=== PATIENT | female | born 1950 | race Caucasian/White ===

== ENCOUNTER 2016-04-13 07:04 | Day surgery (SDC) | payer MEDICARE, OTHER ==
[2016-04-13] VITALS (7 sets, daily range): BP systolic 142–159; BP diastolic 69–79
[~2016-04-13] VITALS: Ht 167.6 cm; Wt 90.8 kg
[~2016-04-13 07:04] MED LIST: ATOR40TA PO; DESV50TA PO; NF-DICLTB PO; OLME40TA14 PO; SITA1TAB6 PO
--- OUTSIDE RECORDS SUMMARY | 2016-04-13 07:07 | XMS REPORT | Continuity of Care Document ---
Author Author [facility] Organization [facility] Address Unknown Phone Unavailable Care Team Providers Care Painter Barrel Name Role Phone CHINO MAHMOOD MD PCP Insurance Providers Payer Name Policy Number Subscriber Name Relationship [employer] [id number] Tracy Antunez 18 Self / Same As Patient Comm Crossover Enter Ins Name [id number] Tuyet Antunez 18 Self / Same As Patient Problems No problem information available. Medications Current Home Medications Medication Dose Units Route Directions Days/Qty Instructions Start Date Sitagliptin Phos/Metformin Hcl 1 Each 1 Tab Oral Twice A Day Olmesartan 40 Mg 1 Tab Oral Daily 07/13/09 Diclofenac/Misoprostol 1 Tab 1 Tab Oral Twice A Day 07/13/09 Desvenlafaxine Succinate 50 Mg 1 Tab Oral Daily 07/13/09 Atorvastatin Calcium 40 Mg 1 Tab Oral Daily 07/13/09 Social History Social History Problem Response Recorded Date/Time Recent Foreign Travel No 07/17/2015 1:53pm Hospital Discharge Instructions No hospital discharge instructions. Plan of Care Discharge Date 07/17/15 2:30pm Prescriptions See Medication Section Functional Status No functional status results. Allergies, Adverse Reactions, Alerts Allergen Type Severity Reaction Status Last Updated SULFA Allergy Intermediate Active 07/13/09 Immunizations No immunization records. Vital Signs Acute Vital Signs Vital Response Date/Time Pulse Rate (adult) 85 bpm (60 - 90) 06/19/2015 9:51am O2 Sat by Pulse Oximetry 99 % (88 - 100) 06/19/2015 9:49am Blood Pressure 143/72 mm Hg 06/19/2015 9:49am Blood Pressure Mean 95 mm Hg 06/19/2015 9:49am Height (Feet) 5 feet 06/19/2015 8:24am Height (Inches) 6.00 inches 06/19/2015 8:24am Height (Calculated Centimeters) 167.053087 cm 06/19/2015 8:24am Weight (Pounds) 200 pounds 06/19/2015 8:24am Weight (Ounces) 2.0 oz 06/19/2015 8:24am Weight (Calculated Grams) 35069.174 gm 06/19/2015 8:24am Weight (Calculated Kilograms) 90.481433 kilograms 06/19/2015 8:24am Calculated BMI 32.3 06/19/2015 8:24am Results Pending Laboratory Results Test Name Collection Date/Time Procedures Procedure Status Date Provider(s) Cardiac event recording Completed 06/23/15 CRISTOFER GUERRERO MD, FACP, FACCS Color Doppler echocardiography Active 06/27/15 CRISTOFER GUERRERO MD, FACP, FACC CCDS Encounters Encounter Location Arrival/Admit Date Discharge/Depart Date Attending Provider Departed Clinic [facility] 07/17/15 1:52pm 07/17/15 2: 30pm DEMOND ROBERTSON APRN Registered Clinic [facility] 07/01/15 12:18pm CRISTOFER GUERRERO FACP, MD, FACC Registered Clinic [facility] 06/27/15 11:52am CRISTOFER GUERRERO FACP, MD, FACC Registered Rec[facility]ring [facility] 06/23/15 1:05pm CRISTOFER GUERRERO FACP, MD, FACC Registered Clinic [facility] 06/19/15 8:15am CRISTOFER GUERRERO FACP, MD, FACC
--- OUTSIDE RECORDS SUMMARY | 2016-04-13 07:07 | XMS REPORT | Continuity of Care Document ---
Author Author [facility] Organization [facility] Address Unknown Phone Unavailable Care Team Providers Care Electron Gun Inspector Name Role Phone CHINO MAHMOOD MD PCP Insurance Providers Payer Name Policy Number Subscriber Name Relationship [employer] [id number] Tracy Antunez 18 Self / Same As Patient Comm Crossover Enter Ins Name [id number] Tuyet Antunez 16 Self / Same As [...] 6.00 inches 06/19/2015 8:24am Height (Calculated Centimeters) 167.896041 cm 06/19/2015 8:24am Weight (Pounds) 200 pounds 06/19/2015 8:24am Weight (Ounces) 2.0 oz 06/19/2015 8:24am Weight (Calculated Grams) 55841.174 gm 06/19/2015 8:24am Weight (Calculated Kilograms) 90.098379 kilograms 06/19/2015 8:24am Calculated BMI 32.3 06/19/2015 8:24am Results Pending Laboratory Results Test Name Collection Date/Time Procedures Procedure Status Date Provider(s) Cardiac event recording Completed 06/23/15 CRISTOFER GUERRERO MD, FACP, FACCS Color Doppler echocardiography Active 06/27/15 CRISTOFER GUERRERO MD, FACP, FACC CCDS Encounters Encounter Location Arrival/Admit Date Discharge/Depart Date Attending Provider Departed Clinic [facility] 07/17/15 1:52pm 07/17/15 2: 30pm DEMOND ROBERTSON APRN Registered Clinic [facility] 07/01/15 12:18pm CRISTOFER GUERRERO FACP, MD, FACC Registered Clinic [facility] 06/27/15 11:52am CRISTOFER GUERRERO FACP, MD, FACC Registered Recurring [facility] 06/23/15 1:05pm CRISTOFER GUERRERO FACP, MD, FACC Registered Clinic [facility] 06/19/15 8:15am CRISTOFER GUERRERO FACP, MD, FACC
[2016-04-13] MEDS ORDERED: HEParin (CATH LAB) 2,000 ML IV ONE (07:11)
[2016-04-13] MEDS ORDERED: NS IV 1000 ML 1,000 ML ONE (07:11)
[2016-04-13] MEDS ORDERED: LIDOCAINE 1% INJ 20 ML (XYLOCAINE) VIAL ONE (07:11)
[2016-04-13 07:35] LABS: MEAN PLATELET VOLUME 9.8 FL (7.4-10.4); RED BLOOD COUNT 4.86 10^6/uL (4.35-5.85); RED CELL DISTRIBUTION WIDTH 12.9 % (10.0-14.5); WHITE BLOOD COUNT 8.6 10^3/uL (4.3-11.0)
[2016-04-13] MEDS: NS IV 1000 ML 1,000 ML IV SCH ×2 (07:41→17:45)
[2016-04-13 07:52] LABS: PROTHROMBIN TIME PATIENT 13.1 SEC (12.2-14.7)
[2016-04-13 07:54] LABS: ALBUMIN 4.5 G/DL (3.2-4.5); BILIRUBIN,TOTAL 0.6 MG/DL (0.1-1.0); CALCIUM 10.2 MG/DL (8.5-10.1); CREATININE SERUM 1.09 MG/DL (0.60-1.30); POTASSIUM 4.4 MMOL/L (3.6-5.0); TOTAL PROTEIN 7.7 G/DL (6.4-8.2)
[2016-04-13] MEDS ORDERED: VENL75TA2 PO (08:07)
[2016-04-13] MEDS ORDERED: FLUT16SP22 NS (08:07)
[2016-04-13] MEDS ORDERED: LOSA100T28 PO (08:07)
[2016-04-13] MEDS ORDERED: CETI10TA20 PO (08:07)
[2016-04-13] MEDS ORDERED: LIRA0.6P SQ (08:07)
[2016-04-13] MEDS ORDERED: KRIL1CAP22 PO (08:07)
[2016-04-13] MEDS ORDERED: MONT10TA21 PO (08:07)
[2016-04-13] MEDS ORDERED: RT-ALBUINH IH (08:09)
[2016-04-13] MEDS ORDERED: fentaNYL INJECTION 100 MCG/2 ML AMP ONE ×2 (08:16→13:27)
[2016-04-13] MEDS ORDERED: diphenhydrAMINE 50 MG/ML INJ (BENADRYL) ONE (08:16)
[2016-04-13] MEDS ORDERED: MIDAZOLAM 5 MG/5 ML (VERSED) VIAL ONE (08:16)
[2016-04-13] MEDS ORDERED: HEParin 1000 UNIT/ML (10ML VIAL) FOR BOLUS ONE (08:44)
[2016-04-13] MEDS ORDERED: EPTIFIBATIDE BOLUS 20 ML IV ONE (08:44)
[2016-04-13] MEDS ORDERED: NITROGLYCERIN DRIP 25 MG/D5W 250 ML IV ONE (08:44)
[2016-04-13] MEDS ORDERED: CLOPIDOGREL 300 MG (PLAVIX) TABLET PO ONE (09:16)
[2016-04-13] MEDS ORDERED: ASPIRIN 81 MG CHEW (CHILDREN'S ASA) ONE ×2 (09:16→09:19)
[2016-04-13] MEDS ORDERED: NS IV 1000 ML 1,000 ML IV SCH (09:20)
--- NOTE | 2016-04-13 09:21 | Cardiac Procedure Note-CS/ASA ---
Pre-Procedure Note Pre-Op Procedure Note H&P Reviewed The H&P was reviewed, patient examined and no changes noted. Date H&P Reviewed: Apr 13, 2016 Time H&P Reviewed: 08:30 Conscious Sedation Pre-Proced Time Reviewed: 08:30 ASA Class: 3 Airway Mallampati Classification: (nightmute appropriate class) I. II. III, IV Lungs Heart ASA score ASA 1: a normal healthy patient ASA 2: a patient with a mild systemic disease (mid diabetes, controlled hypertension, obesity ASA 3: a patient with a severe systemic disease that limits activity (angina , COPD, prior Myocardial infarction) ASA 4: a patient with an incapacitating disease that is a constant threat to life (CHF, renal failure) ASA 5: a moribund patient not expected to survive 24 hrs. (ruptured aneurysm) ASA 6: a declared brain patient whose organs are being harvested. For emergent operations, add the letter E after the classification Grade 3 Sedation Plan: Analgesia, Amnesia, Plan communicated to team members, Discussed options with patient/fam, Discussed risks with patient/fam Note The patient is an appropriate candidate to undergo the planned procedure, sedation, and anesthesia. The patient immediately re-assessed prior to indication. CRISTOFER GUERRERO MD FACP FAC CCDS Apr 13, 2016 09:20
[2016-04-13] MEDS ORDERED: FLUTICASONE NASAL SPRAY (FLONASE) 16 GM BTL NS PRN (09:30)
[2016-04-13] MEDS ORDERED: ACETAMINOPHEN 325 MG TABLET/CAPLET (TYLENOL) PO PRN (09:30)
[2016-04-13] MEDS ORDERED: RX-ALBUTEROL INHALER (VENTOLIN HFA) 18 GM IH PRN (09:30)
[2016-04-13] MEDS ORDERED: PATIENT MAY USE OWN MEDS, ALL PO SCH (09:30)
[2016-04-13] MEDS ORDERED: ATROPINE INJECTION 1 MG/10 ML SYR (ABBOTT) ONE (13:29)
[2016-04-13] MEDS: inSUlin (REGULAR) HUMAN 1 UNIT/0.01 ML (CHARGE PER UNIT) SC SCH ×3 (14:38→20:59)
[2016-04-13] MEDS ORDERED: RT-ALBUTEROL SULF 2.5 MG/3 ML PRE-MIX VIAL INH PRN (14:45)
[2016-04-13] MEDS ORDERED: MONTELUKAST 10 MG (SINGULAIR) TAB PO SCH (21:00)
[2016-04-13] MEDS ORDERED: ATORVASTATIN 40 MG (LIPITOR) TABLET PO SCH (21:00)
[2016-04-14] MEDS: NS IV 1000 ML 1,000 ML IV SCH (03:45)
[2016-04-14 04:31] LABS: MEAN PLATELET VOLUME 10.2 FL (7.4-10.4); RED BLOOD COUNT 4.54 10^6/uL (4.35-5.85); RED CELL DISTRIBUTION WIDTH 12.9 % (10.0-14.5); WHITE BLOOD COUNT 8.3 10^3/uL (4.3-11.0)
[2016-04-14 04:35] VITALS: BP 157/7
[2016-04-14 04:49] LABS: ANION GAP 11 MMOL/L (5-14); BLOOD UREA NITROGEN 16 MG/DL (7-18); BUN/CREATININE RATIO 18; CALCIUM 9.6 MG/DL (8.5-10.1); CARBON DIOXIDE 24 MMOL/L (21-32); CHLORIDE 103 MMOL/L (98-107); CREATININE SERUM 0.91 MG/DL (0.60-1.30); GFR ESTIMATED > 60; GLUCOSE 251 MG/DL (70-105); POTASSIUM 4.1 MMOL/L (3.6-5.0); SODIUM 138 MMOL/L (135-145)
[2016-04-14] MEDS: inSUlin (REGULAR) HUMAN 1 UNIT/0.01 ML (CHARGE PER UNIT) SC SCH (06:08)
[2016-04-14 07:44] VITALS: BP 140/69
--- NOTE | 2016-04-14 08:29 | Progress Note-Cardiology ---
Cardiology SOAP Progress Note Subjective: Sitting up in a chair at the bedside. No c/o CP, dyspnea, palpitations. No c/ o right groin discomfort. Objective: I&O/Vital Signs Vital Sign - Last 12Hours 04/14/16 04/14/16 04/14/16 04/14/16 04:35 07:00 07:44 09:55 Temp 98.3 98.6 Pulse 84 85 95 95 Resp 19 16 16 B/P 157/7 140/69 140/69 Pulse Ox 95 94 94 O2 Delivery Room Air Room Air Intake and Output 04/14/16 00:00 Intake Total 250 ml Balance 250 ml Weight (Pounds): 200 Weight (Ounces): 2.0 Weight (Calculated Kilograms): 90.755355 Side: right Groin site without hematoma: Yes Condition: DP/PT pulses palpable, extremity w/d/p Bruising: mild bruising Constitutional: AAO x 3 Respiratory: lungs clear to auscultation Cardiovascular: regular rate-rhythm S1 and S2 systolic murmur Gastrointestional: No tender, soft round Extremities: no lower extremity edema bilateral Neurologic/Psychiatric: grossly intact Results/Procedures: Labs Laboratory Tests 04/13/16 16:18: Glucometer 145H 04/13/16 20:45: Glucometer 253H 04/14/16 03:35: Anion Gap 11, BUN/Creatinine Ratio 18, Blood Urea Nitrogen 16, Calcium Level 9.6 , Carbon Dioxide Level 24, Chloride Level 103, Creatinine 0.91, Estimat Glomerular Filtration Rate > 60, Glucose Level 251H, Hematocrit 40, Hemoglobin 13.3, Mean Corpuscular Hemoglobin 29, Mean Corpuscular Hemoglobin Concent 34, Mean Corpuscular Volume 87, Mean Platelet Volume 10.2, Platelet Count 200, Potassium Level 4.1, Red Blood Count 4.54, Red Cell Distribution Width 12.9, Sodium Level 138, White Blood Count 8.3 04/14/16 06:04: Glucometer 271H Procedures S/P cardiac cath with successful intervention. Please refer to Dr. Caldwell's cardiac cath report of 04-13-16 for details. A/P: Assessment: CAD -Card cath on 04/13/16: single vessel CAD treated with Alpine Xience 3.5 x 12mm stent to the LCX; LVEF 65-70% Echocardiogram of 4-29-16 showed normal global systolic function with ejection fraction of approx 60%. Aortic valve sclerosis with mild aortic stenosis and valve area approx 1.8 cm sq and a peak gradient across the aortic valve approx 31 mmHg. mild aortic, mitral and tricuspid regurg. Evidence of diastolic dysfunction of the LV. PASP estimated to be approx 20mmHg NAYANA - CPAP followed by Dr. Hair HTN DMII HLP - statin tx DJD Plan: Discussed results of cardiac cath with her Questions answered Discussed medications and importance of compliance Continue current medication regimen including ASA, Plavix, statin We will see her as an outpt in 2 weeks Physician Assessment Physician Assessment Lungs: clear Cor: reg A&R * I spoke with her in detail and explained the findings of yesterday's procedure and interventions undertaken * I reviewed the rationale of current regimen and importance of compliance * I answered questions and have advised close outpatient f/u for now SHIREEN KENNEDY Apr 14, 2016 08:29 CRISTOFER CALDWELL MD FACP FAC CCDS Apr 14, 2016 13:20 DMII HLP - statin tx DJD Plan: Discussed results of cardiac cath with her Questions answered Discussed medications and importance of compliance Continue current medication regimen including ASA, Plavix, statin We will see her as an outpt in 2 weeks SHIREEN KENNEDY Apr 14, 2016 08:29
[2016-04-14] MEDS ORDERED: CLOP75TA28 PO (08:44)
[2016-04-14] MEDS ORDERED: ASPI-586 PO (08:47)
--- NOTE | 2016-04-14 08:47 | Discharge Inst-Cardiology ---
Discharge Inst-Cardiac Discharge Medications New Medications: Aspirin (Aspir 81) 81 Mg Tablet.dr 81 MG PO DAILY #90 Ref 5 TAB Clopidogrel Bisulfate (Clopidogrel) 75 Mg Tablet 75 MG PO DAILY #90 Ref 3 TAB Continued Medications: Albuterol Sulfate (Ventolin Hfa Common Canister) 8.5 Gm Hfa.aer.ad 2 PUFF IH Q4H PRN SHORTNESS OF BREATH INH Atorvastatin Calcium (Lipitor 40MG) 40 Mg Tablet 40 MG PO HS TAB Cetirizine HCl (Zyrtec) 10 Mg Tablet 10 MG PO DAILY TAB Fluticasone Propionate (Fluticasone Propionate) 16 Gm [place].susp 1 SPRAY NS DAILY PRN ALLERGIES SPRAY Krill/Om-3/Dha/Epa/Phospho/Ast (Megared [place]-3 Krill Oil Sfgl) 1 Each Capsule 1 CAP PO DAILY CAP Liraglutide (Victoza 2-José) 0.6 Mg/0.1 Ml Pen.injctr 1.2 MG SQ DAILY VIAL Losartan Potassium (Losartan Potassium) 100 Mg Tablet 100 MG PO DAILY TAB Montelukast Sodium (Singulair) 10 Mg Tablet 10 MG PO HS TAB Sitagliptin Phos/Metformin Hcl (Janumet 50-1,000 Mg Tablet) 1 Each Tablet 1 TAB PO BID TAB Venlafaxine HCl (Venlafaxine HCl ER) 75 Mg Tab.er.24 150 MG PO DAILY TAKES 2 (75MG) TABLETS TAB Patient Instructions Patient Instructions: Hold Janumet today and tomorrow. May resume on April 16. Follow up appt to see Dr. Caldwell in 2 weeks SHIREEN KENNEDY Apr 14, 2016 08:47
[2016-04-14] MEDS ORDERED: NON-FORMULARY MEDICATION 1 EA EA (Cetirizine HCl (Zyrtec) 10 MG) PO SCH (09:00)
[2016-04-14] MEDS ORDERED: LOSARTAN 50 MG (COZAAR) TAB PO SCH (09:00)
[2016-04-14] MEDS ORDERED: [UNRECOGNIZED DRUG - OTHER] PO SCH (09:00)
[2016-04-14] MEDS ORDERED: NON-FORMULARY MEDICATION 1 EA EA (Venlafaxine HCl (Venlafaxine HCl ER) 150 MG) PO SCH (09:00)
[2016-04-14] MEDS ORDERED: NON-FORMULARY MEDICATION 1 EA EA (Losartan Potassium 100 MG) PO SCH (09:00)
[2016-04-14] MEDS ORDERED: DHA PO SCH (09:00)
[2016-04-14] MEDS ORDERED: ASPIRIN 81 MG CHEW (CHILDREN'S ASA) PO SCH (09:00)
[2016-04-14] MEDS ORDERED: KRILL PO SCH (09:00)
[2016-04-14] MEDS ORDERED: PHOSPHO PO SCH (09:00)
[2016-04-14] MEDS ORDERED: AST PO SCH (09:00)
[2016-04-14] MEDS ORDERED: EPA PO SCH (09:00)
[2016-04-14] MEDS ORDERED: CLOPIDOGREL 75 MG (PLAVIX) TABLET PO SCH (09:00)
[2016-04-14] MEDS ORDERED: NON-FORMULARY MEDICATION 1 EA EA (Liraglutide (Victoza 2-Pak) 1.2 MG) SQ SCH (09:00)
[2016-04-14 09:55] VITALS: BP 140/69
[2016-04-14 10:24] VITALS: BP 140/69
--- NOTE | 2016-04-14 12:56 | CARDIAC CATHETERIZATION ---
PROCEDURE PHYSICIAN: CRISTOFER GUERRERO CARDIAC CATHETERIZATION AND CORONARY INTERVENTION REPORT DATE OF PROCEDURE: 04/13/2016 Tracy Antunez is a 65-year-old lady who has multiple coronary artery disease risk factors. She had been experiencing chest discomfort suggestive of new onset of angina. Cardiac catheterization was carried today after having obtained an informed consent. PROCEDURE: She is brought to the cardiac catheterization laboratory in a fasting state. The right groin was prepped and draped in usual sterile fashion. 1% lidocaine was used for local anesthesia. Modified Seldinger technique was used to advance a 5-[place] sheath in right femoral artery. 5-[place] JL4 catheter was used for left coronary angiography. 5-[place] JR4 catheter was used for right coronary angiography. A 5-[place] pigtail catheter was used for left heart catheterization and left ventricular angiography. PERCUTANEOUS INTERVENTION OF THE LEFT CIRCUMFLEX CIRCUMFLEX ARTERY: Following completion of diagnostic procedure, we exchanged the sheath over a wire for a 6-[place] sheath. We gave a double bolus Integrilin 6500 units of intravenous heparin. We used a 6-[place] Q4.5 guide catheter to engage the left coronary artery. We used a BMW wire across the 80% stenosis in the mid left circumflex artery and the tip was placed in distal vessel. We advanced Alpine Xience 3.5 x 12 mm stent and positioned it to cover the stenosis and the stent was deployed at 12 atmospheres. Subsequently, the balloon was pulled back slightly into the stent and the proximal two-thirds of the stent received another balloon inflation of 14 atmospheres. This was because the proximal part of the stented area is slightly larger than the distal part of the stented area. Full stent deployment was achieved. Flow throughout the vessel was ALEC 3. Stenosis was reduced to 0% residual. Distal to the stent, there are mild plaques constituting stenoses of up to 30% or less. These were not intervened on. Angioplasty equipment was removed. Angiography of the right femoral artery was carried out through the sheath and the site of sheath deployment was not suitable for device closure. The sheath was sutured in place and the patient was transferred to floor for manual sheath removal. She tolerated the procedure well. HEMODYNAMICS: Left ventricular end diastolic pressure following coronary angiography was 15 mmHg. There is no significant pressure gradient on pullback across the aortic valve. Ascending aortic pressure was 179/92 with a mean of 132 mmHg. LEFT VENTRICULAR ANGIOGRAPHY: Left ventricular angiography was carried out in the right anterior oblique projection. Global left ventricular systolic function is normal. No regional wall motion abnormalities are seen. There does not appear to be significant mitral regurgitation. Left ventricular ejection fraction of 65 to 70%. CORONARY ANGIOGRAPHY: Mild proximal coronary calcification is present. The left main coronary artery does not exhibit significant obstructive disease. The left anterior descending artery does not exhibit significant obstructive disease. The left circumflex artery had 80% mid vessel stenosis to which successful stenting was carried out with reduction of stenosis to 0% residual, following deployment of Alpine Xience 3.5 x 12 mm stent. The rest of the coronary vessels have mild plaques. CONCLUSION: 1. Coronary artery disease, primarily consisting of 80% mid vessel stenosis of the left circumflex artery to which successful stenting was carried out with Alpine Xience 3.5 x 12 mm stent, which reduced the stenosis to 0% residual. The rest of the coronary vessels have mild plaques. 2. Mild elevation of left ventricular end diastolic pressure. 3. No significant mitral regurgitation. 4. Normal global left ventricular systolic function with an ejection fraction of 65 to 70%. DISCUSSION AND RECOMMENDATIONS: She is being admitted for observation following this intervention. Clopidogrel has been added to the regimen. Aspirin is being continued. She is already is on statin therapy. Job ID: [id number] Dictated Date: 04/13/2016 09:13:22 Drivability Technician Date: 04/14/2016 12:40:21 / josé
== END 2016-04-14 09:55 | disposition home or self-care (01) ==
LOC: CATH 07:04 → ICU 09:22 → CATH 04-14 09:55
PROVIDERS: ATTEND Internal Medicine Cardiovascular Disease
DX: I25.10 Atherosclerotic heart disease of native coronary artery without angina pectoris (principal); I25.84 Coronary atherosclerosis due to calcified coronary lesion; E11.9 Type 2 diabetes mellitus without complications; I10 Essential (primary) hypertension; E78.5 Hyperlipidemia, unspecified; G47.33 Obstructive sleep apnea (adult) (pediatric); R00.2 Palpitations; Z79.899 Other long term (current) drug therapy
CPT/HCPCS: 36415; 80048; 80053; 80061; 82962; 85027; 85610; 85730; 87081; 93005; 93458

== ENCOUNTER → 2018-01-03 | Outpatient (CLI) | payer MEDICARE, OTHER ==
[~2018-01-03] MED LIST changes: +ASPI-586 PO; +CETI10TA20 PO; +CLOP75TA28 PO; +FLUT16SP22 NS; +KRIL1CAP22 PO; +LIRA0.6P SQ; +LOSA100T8 PO; +MONT10TA21 PO; +RT-ALBUINH IH; +VENL75TA2 PO
== END ==
LOC: CARD 13:06
PROVIDERS: ATTEND Nurse Practitioner Family
DX: I25.10 Atherosclerotic heart disease of native coronary artery without angina pectoris (principal); I10 Essential (primary) hypertension; I08.3 Combined rheumatic disorders of mitral, aortic and tricuspid valves
CPT/HCPCS: 93306

== ENCOUNTER 2018-01-17 10:59 | Day surgery (SDC) | payer MEDICARE, OTHER ==
[2018-01-17] VITALS (12 sets, daily range): BP systolic 112–175; BP diastolic 62–92
[~2018-01-17] VITALS: Ht 167.6 cm; Wt 95.3 kg
[2018-01-17] MEDS ORDERED: HEParin (CATH LAB) 2,000 ML IV ONE (11:09)
[2018-01-17] MEDS ORDERED: LIDOCAINE 1% INJ 20 ML 20 ML VIAL ONE (11:09)
[2018-01-17] MEDS ORDERED: NS IV 1000 ML 1,000 ML ONE (11:09)
[2018-01-17] MEDS ORDERED: NS IV 1000 ML 1,000 ML IV SCH ×2 (11:12→14:25)
[2018-01-17 11:53] LABS: HEMOGLOBIN 13.6 G/DL (11.5-16.0); MEAN PLATELET VOLUME 9.8 FL (7.4-10.4); RED BLOOD COUNT 4.84 10^6/uL (4.35-5.85); RED CELL DISTRIBUTION WIDTH 15.2 % (10.0-14.5); WHITE BLOOD COUNT 9.2 10^3/uL (4.3-11.0)
[2018-01-17 12:11] LABS: INR 1.1 (0.8-1.4); PROTHROMBIN TIME PATIENT 13.8 SEC (12.2-14.7)
[2018-01-17 12:15] LABS: ALANINE AMINOTRANSFERASE 23 U/L (0-55); ALBUMIN 4.8 GM/DL (3.2-4.5); ALKALINE PHOSPHATASE 123 U/L (40-136); BILIRUBIN,TOTAL 0.6 MG/DL (0.1-1.0); BUN/CREATININE RATIO 18; CALCIUM 10.6 MG/DL (8.5-10.1); CARBON DIOXIDE 23 MMOL/L (21-32); CHLORIDE 103 MMOL/L (98-107); CHOLESTEROL 276 MG/DL (< 200); GFR ESTIMATED 49; GLUCOSE 225 MG/DL (70-105); HDL CHOLESTEROL 57 MG/DL (40-60); POTASSIUM 4.5 MMOL/L (3.6-5.0); SODIUM 140 MMOL/L (135-145); TOTAL PROTEIN 8.3 GM/DL (6.4-8.2); TRIGLYCERIDES 185 MG/DL (<150); VLDL CHOLESTEROL 37 MG/DL (5-40)
[2018-01-17] MEDS ORDERED: FLU QUADRIvalent (5+ YOA) 2018-2019 (AFLURIA) 0.5 ML IM ONE (12:30)
[2018-01-17] MEDS ORDERED: VENL225T PO (12:38)
[2018-01-17] MEDS ORDERED: ATOR40TA70 PO (12:38)
[2018-01-17] MEDS ORDERED: METF-399 PO (12:38)
[2018-01-17] MEDS ORDERED: CLOP75TA69 PO (12:38)
[2018-01-17] MEDS ORDERED: VITA100T6 PO (12:38)
[2018-01-17] MEDS ORDERED: RT-ALBUINH IH (12:38)
[2018-01-17] MEDS ORDERED: INSU100V6 SQ (12:38)
[2018-01-17] MEDS ORDERED: ASPI-983 PO (12:38)
[2018-01-17] MEDS ORDERED: fentaNYL INJECTION 100 MCG/2 ML AMP ONE ×2 (13:15→17:23)
[2018-01-17] MEDS ORDERED: MIDAZOLAM 5 MG/5 ML (VERSED) VIAL ONE (13:15)
[2018-01-17] MEDS ORDERED: diphenhydrAMINE 25 MG TAB (BENADRYL) PO ONE (13:16)
--- NOTE | 2018-01-17 13:42 | Cardiac Procedure Note-CS/ASA ---
Pre-Procedure Note Pre-Op Procedure Note H&P Reviewed The H&P was reviewed, patient examined and no changes noted. Date H&P Reviewed: Jan 17, 2018 Time H&P Reviewed: 13:42 Conscious Sedation Pre-Proced Time 13:42 ASA Score 3 For ASA 3 and 4: Consider anesthesia and medical clearance. Also, for patients with a history of failed moderate sedation consider anesthesia. Airway Lungs Heart ASA score ASA 1: a normal healthy patient ASA 2: a patient with a mild systemic disease (mid diabetes, controlled hypertension, obesity ASA 3: a patient with a severe systemic disease that limits activity (angina , COPD, prior Myocardial infarction) ASA 4: a patient with an incapacitating disease that is a constant threat to life (CHF, renal failure) ASA 5: a moribund patient not expected to survive 24 hrs. (ruptured aneurysm) ASA 6: a declared brain patient whose organs are being harvested. For emergent operations, add the letter E after the classification Mallampati Classification Grade 2 Sedation Plan Analgesia, Amnesia, Plan communicated to team members, Discussed options with patient/fam, Discussed risks with patient/fam The patient is an appropriate candidate to undergo the planned procedure, sedation, and anesthesia. The patient immediately re-assessed prior to indication. CRISTOFER GUERRERO MD FACP FAC CCDS Jan 17, 2018 13:42
[2018-01-17] MEDS ORDERED: HEParin 1000 UNIT/ML (10ML VIAL) FOR BOLUS ONE (13:56)
[2018-01-17] MEDS ORDERED: ADENOSINE 3 MG/1 ML (ADENOSCAN) 30ML VIAL IV ONE (14:07)
[2018-01-17] MEDS ORDERED: meTOprolol 5 MG/5 ML (LOPRESSOR) VIAL ONE (14:16)
[2018-01-17] MEDS ORDERED: PATIENT MAY USE OWN MEDS, ALL PO SCH (14:30)
--- NOTE | 2018-01-17 14:33 | Discharge Inst-Post CATH ---
Discharge Inst-CATH Post Cardiac Cath D/C Inst Follow Up/Plan F/u with Dr Caldwell in 2 weeks CARDIAC CATH DISCHARGE INSTRUCTIONS *Hold Metformin for 48 hours after heart cath. ACTIVITY * Go Home directly and rest. * Limit activity of the leg (or wrist if it was used) for 7 days including aerobics, swimming, jogging, bicycling, etc. * Restrict stair-climbing for 7 days if possible, if not, climb up with your non -cath leg, then bring together on the same step. * Avoid lifting, pushing, pulling or excessive movement of the affected extremity for 7 days. * Customary sexual activity may be resumed after 2 days-use caution not to use a position that strains or causes pain to the affected extremity. * No driving for 24 hours. * NO SMOKING. * Avoid straining for bowel movements for 7 days. * Gentle walking on level ground is allowed. * Returning to work will depend on the type of procedure and the results. Your doctor will discuss this with you. CALL YOUR DOCTOR FOR ANY OF THE FOLLOWING: *If bleeding from the puncture site occurs- Apply gentle pressure to site with clean cloth and call your doctor or EMS. * If a knot or lump forms under the skin, increases in size, or causes pain. * If bruising appears to be worsening or moving further down your leg instead of disappearing. * Temperature above 101 F. CARE OF YOUR GROIN INCISION; * Bruising or purple discoloration of the skin near the puncture site is common. * You may shower only, no bathtub bathing for 5 days. Be careful to avoid slipping as your leg may feel stiff. * If a closure device was used on your femoral artery, please see the attached guide regarding care of the device and your leg. * Leave the dressing on, until removed by office staff. CARE OF YOUR WRIST INCISION; * Bruising or purple discoloration of the skin near the puncture site is common. * You may shower. * DO NOT submerge wrist. * Leave dressing on, until removed by office staff.. CRISTOFER CALDWELL MD [facility] CCDS Jan 17, 2018 14:33
--- NOTE | 2018-01-17 14:35 | Discharge Inst-Cardiology ---
Discharge Inst-Cardiac Discharge Medications Continued Medications: Albuterol Sulfate (Proair Hfa) 1 Puff Puff 2 PUFF IH Q4H PRN for SHORTNESS OF BREATH, INHALER 1 PUFF = 90 MCG Aspirin (Aspirin EC) 81 Mg Tablet.dr 81 MG PO HS, TAB Atorvastatin Calcium (Atorvastatin Calcium) 40 Mg Tablet 40 MG PO Q48H, TAB Cetirizine HCl (Zyrtec) 10 Mg Tablet 10 MG PO DAILY, TAB Clopidogrel Bisulfate (Plavix) 75 Mg Tablet 75 MG PO DAILY, TAB Fluticasone Propionate (Fluticasone Propionate) 16 Gm [place].susp 1 SPRAY NS DAILY, EA Insulin Glargine,Hum.rec.anlog (Lantus) 100 Unit/1 Ml Vial 40 UNIT SQ BID, VIAL Krill/Om-3/Dha/Epa/Phospho/Ast (Megared [place]-3 Krill Oil Sfgl) 1 Each Capsule 1 CAP PO DAILY, CAP Losartan Potassium (Losartan Potassium) 100 Mg Tablet 100 MG PO DAILY, TAB Metformin HCl (Metformin HCl) 1,000 Mg Tablet 1000 MG PO BID, TAB Montelukast Sodium (Singulair) 10 Mg Tablet 10 MG PO HS, TAB Venlafaxine HCl (Venlafaxine HCl ER) 225 Mg Tab.er.24 225 MG PO DAILY, TAB Vitamin E Acid Succinate (Vitamin E) 100 Unit Tablet 100 UNIT PO DAILY, TAB Patient Instructions Patient Instructions: HOLD METFORMIN UNTIL THE EVENING OF 01/19/18, then resume previous home dose CRISTOFER GUERRERO MD FACP FAC CCDS Jan 17, 2018 14:35
[2018-01-17] MEDS ORDERED: amLODIPine 10 MG (NORVASC) TAB PO ONE (14:45)
[2018-01-17] MEDS ORDERED: ATROPINE INJECTION 1 MG/10 ML SYR (ABBOTT) ONE (17:24)
[2018-01-17] MEDS ORDERED: fentaNYL INJECTION 100 MCG/2 ML AMP IVP ONE (17:30)
--- NOTE | 2018-01-17 19:47 | CARDIAC CATHETERIZATION ---
DATE OF SERVICE: 01/17/2018 CARDIAC CATHETERIZATION REPORT The patient is a 67-year-old lady who is known to have coronary artery disease and has had coronary stenting in 2017 in the left circumflex artery. She has been having recurrent chest discomfort suggestive of angina. A repeat cardiac catheterization was carried out after having obtained an informed consent for cardiac catheterization and possible ad hoc coronary intervention. PROCEDURE: She was brought to the cardiac catheterization laboratory in a fasting state. Right groin was prepared and draped in the usual sterile fashion. Lidocaine 1% with local anesthesia. Modified Seldinger technique was used to advance a 5-[place] sheath into the right femoral artery, 5-[place] JL4 catheter for left coronary angiography, 5-[place] JR4 catheter for right coronary angiography, 5-[place] pigtail catheter was used for left heart catheterization, left ventricular angiography. FRACTIONAL FLOW RESERVE MEASUREMENT IN THE LEFT CIRCUMFLEX ARTERY: Angiographically, there appeared to be approximately 50% stenosis in the mid left circumflex artery, past the distal edge of the previously placed stent. We carried out fractional flow reserve measurement. We exchanged the sheath over a wire for 6-[place] sheath and used a 6-[place] JL4 guide catheter and advanced the flow wire across the lesion and the tip was placed in the distal portion of the left circumflex artery and we infused adenosine at 140 mcg per kilogram per minute for 2-1/2 minutes. Fractional flow reserve was measured at 0.97, indicating hemodynamic insignificance of the lesion in the mid left circumflex artery. Following removal of the fractional flow wire, the coronary status remains unchanged. The stenosis in the mid left circumflex artery is now estimated to be less than 50%, given that there is no impairment of flow. LEFT VENTRICULAR ANGIOGRAPHY: Left ventricular angiography was carried out in the right anterior oblique projection. Global left ventricular systolic function is normal to hyperdynamic. Left ventricular ejection fraction is 65 to 70%. There does not appear to be significant mitral regurgitation. CORONARY ANGIOGRAPHY: Left main coronary artery is free of significant disease. Left anterior descending artery is free of significant disease. Left circumflex artery has a widely patent stent in its mid portion. The left circumflex artery distal to the stent has less than 50% stenosis. The right coronary artery is dominant and does not exhibit significant disease. HEMODYNAMICS: Left ventricular end-diastolic pressure following left ventricular angiography was approximately 20 mmHg. There was no significant pressure gradient on pullback across the aortic valve. Ascending aortic pressure was 165/79 with a mean of 104 mmHg. CONCLUSIONS: 1. Angiographically mild coronary artery disease. There is a widely patent stent in the mid left circumflex artery. The mid left circumflex artery, distal to this stent, has a less than 50% stenosis and the fractional flow reserve is 0.97. 2. Normal to hyperdynamic left ventricular systolic function with an ejection fraction of 65 to 70%. 3. No significant mitral regurgitation. 4. Elevated left ventricular end-diastolic pressure. DISCUSSION AND RECOMMENDATIONS: Based on results of the study, chest discomfort does not appear to be of coronary origin. Continuing risk factor modification is advised. Outpatient followup is advised. Job ID: [id number] DocumentID: [id number] Dictated Date: 01/17/2018 14:45:53 Ice Seller Date: 01/17/2018 19:46:37 Dictated By: CRISTOFER GUERRERO MD, MA, FACP, FACC, MTDD
== END 2018-01-17 22:45 | disposition home or self-care (01) ==
LOC: CATH 10:59 → ICU 14:36 → CATH 22:45
PROVIDERS: ATTEND Internal Medicine Cardiovascular Disease
DX: R07.89 Other chest pain (principal); R06.09 Other forms of dyspnea; R00.2 Palpitations; I25.10 Atherosclerotic heart disease of native coronary artery without angina pectoris; I10 Essential (primary) hypertension; E78.5 Hyperlipidemia, unspecified; E11.9 Type 2 diabetes mellitus without complications; G47.33 Obstructive sleep apnea (adult) (pediatric); E66.9 Obesity, unspecified; Z68.33 Body mass index [BMI] 33.0-33.9, adult; Z95.5 Presence of coronary angioplasty implant and graft; Z79.02 Long term (current) use of antithrombotics/antiplatelets; Z79.82 Long term (current) use of aspirin; Z79.84 Long term (current) use of oral hypoglycemic drugs; Z79.899 Other long term (current) drug therapy; Z96.653 Presence of artificial knee joint, bilateral
CPT/HCPCS: 36415; 80053; 80061; 85027; 85610; 85730; 87081; 93005; 93458

== ENCOUNTER → 2018-04-25 | Outpatient (CLI) | payer MEDICARE, OTHER ==
[~2018-04-25] MED LIST changes: +ASPI-983 PO; +ATOR40TA70 PO; +CLOP75TA69 PO; +INSU100V6 SQ; +LOSA100T57 PO; -LOSA100T8 PO; +METF-399 PO; +VENL225T PO; +VITA100T6 PO
--- NOTE | 2018-04-25 17:49 | Diagnostic Imaging Report ---
EXAMINATION: CHEST (PA AND LATERAL) CLINICAL INDICATION: 67-year-old female, shortness of breath. COMPARISON: July 13, 2009. FINDINGS: Heart size and mediastinal contours are unremarkable. There is no identified pneumothorax. There is no pleural effusion. There is no identified focal airspace consolidation. IMPRESSION: 1. No identified acute cardiopulmonary abnormality. Dictated by: Dictated on workstation # [id number]
== END ==
LOC: RAD 14:58
PROVIDERS: ATTEND Nurse Practitioner Family
DX: J30.9 Allergic rhinitis, unspecified (principal); G47.33 Obstructive sleep apnea (adult) (pediatric)
CPT/HCPCS: 71046

== ENCOUNTER → 2018-04-26 | Outpatient (CLI) | payer MEDICARE, OTHER ==
--- NOTE | 2018-04-26 12:06 | NUR ---
SATS DID NOT DROP BELOW 90% WITH EXERTION ON ROOM AIR. Addendum: 04/26/18 at 1216 by ELIJAH SOTO RT Amended: Links added.
== END ==
LOC: RT 11:12
PROVIDERS: ATTEND Nurse Practitioner Family
DX: G47.33 Obstructive sleep apnea (adult) (pediatric) (principal); J30.9 Allergic rhinitis, unspecified
CPT/HCPCS: 94761

== ENCOUNTER → 2018-05-17 | Outpatient (CLI) | payer MEDICARE, OTHER ==
[~2018-05-17] MED LIST changes: +RT-ALBUTEROL SULF 2.5 MG/3 ML PRE-MIX VIAL INH ONE; +RT-ALBUTEROL SULF 2.5 MG/3 ML PRE-MIX VIAL ONE
== END ==
LOC: RT 12:37
PROVIDERS: ATTEND Nurse Practitioner Family
DX: G47.33 Obstructive sleep apnea (adult) (pediatric) (principal); J30.9 Allergic rhinitis, unspecified
CPT/HCPCS: 94060; 94726; 94729

== ENCOUNTER → 2018-05-18 | Outpatient (CLI) | payer MEDICARE, OTHER ==
[~2018-05-18] MED LIST changes: +BARIUM SUSPENSION 2.1% (VANILLA SILQ) 450 ML PO ONE; +CATHETER FLUSH 10 ML SYR IV PRN; +HOLD METFORMIN - RECEIVED CONTRAST 20 ML VIAL IV SCH; +IOHEXOL 350 MG/ML 100 ML (OMNIPAQUE 350) VIAL IV ONE; +NS 100 ML (IVPB) BAG IV ONE; -RT-ALBUTEROL SULF 2.5 MG/3 ML PRE-MIX VIAL INH ONE; -RT-ALBUTEROL SULF 2.5 MG/3 ML PRE-MIX VIAL ONE
--- NOTE | 2018-05-18 17:23 | Diagnostic Imaging Report ---
PROCEDURE: CT abdomen and pelvis with contrast. TECHNIQUE: Multiple contiguous axial images were obtained through the abdomen and pelvis after administration of intravenous contrast. Auto Exposure Controls were utilized during the CT exam to meet ALARA standards for radiation dose reduction. INDICATION: Left upper quadrant pain. History of diverticulitis. COMPARISON: None available. FINDINGS: Lower chest: The lung bases are clear. No pericardial or pleural effusion. Peritoneum: No free intraperitoneal air or fluid. Liver and biliary system: Diffuse hypoattenuation of the liver is compatible with diffuse hepatic steatosis. No focal hepatic lesion. Cholecystectomy. No biliary duct dilatation. Spleen and Pancreas: Spleen is normal. The pancreas enhances normally without mass lesion or peripancreatic inflammatory changes. Adrenals: Normal. tract: The kidneys enhance normally without suspicious mass or obstruction. Urinary bladder is distended without wall thickening. Status post hysterectomy. No adnexal mass. GI tract: Stomach is partially filled with contrast material, and there is no wall thickening. No bowel obstruction. No pericolonic inflammatory changes. No diverticular disease. In the mid transverse colon, there is a short segment of decompressed bowel that does not significantly change between portal venous and delayed-phase imaging. There are no surrounding inflammatory changes at this level. Normal appendix. Vasculature and Lymph nodes: Normal caliber aorta with moderate atherosclerotic plaquing. No abdominal or pelvic lymphadenopathy. Musculoskeletal: No concerning osseous lesion. IMPRESSION: 1. No acute inflammatory or obstructive process in the abdomen or pelvis. Specifically, there are no features of diverticulitis. 2. There is an approximately 7 cm segment of the transverse colon that is decompressed with apparent wall thickening. This may represent peristalsis although does not change between the portal venous and delayed phases of imaging. Therefore, neoplastic or chronic inflammatory process could be present. Correlation with colonoscopy is advised. 3. Diffuse hepatic steatosis. Dictated by: Dictated on workstation # [id number]
== END ==
LOC: RAD 14:22
PROVIDERS: ATTEND Family Medicine
DX: K76.0 Fatty (change of) liver, not elsewhere classified (principal); K63.89 Other specified diseases of intestine; Z90.49 Acquired absence of other specified parts of digestive tract; Z87.19 Personal history of other diseases of the digestive system
CPT/HCPCS: 74177

== ENCOUNTER 2018-05-23 10:57 | Outpatient (CLI) | payer MEDICARE, OTHER ==
[~2018-05-23] VITALS: Ht 167.6 cm; Wt 92.5 kg
[~2018-05-23 10:57] MED LIST changes: -BARIUM SUSPENSION 2.1% (VANILLA SILQ) 450 ML PO ONE; -CATHETER FLUSH 10 ML SYR IV PRN; -HOLD METFORMIN - RECEIVED CONTRAST 20 ML VIAL IV SCH; -IOHEXOL 350 MG/ML 100 ML (OMNIPAQUE 350) VIAL IV ONE; -NS 100 ML (IVPB) BAG IV ONE
== END 2018-05-23 11:44 | disposition home or self-care (01) ==
LOC: PREOP 10:57
PROVIDERS: ATTEND Surgery
DX: Z01.818 Encounter for other preprocedural examination (principal)

== ENCOUNTER 2018-05-24 10:43 | Day surgery (SDC) | payer MEDICARE, OTHER ==
[~2018-05-24] VITALS: Ht 167.6 cm; Wt 92.5 kg
[2018-05-24] MEDS ORDERED: NS IV 500 ML 500 ML ONE (10:56)
--- OUTSIDE RECORDS SUMMARY | 2018-05-24 10:56 | XMS REPORT | Continuity of Care Document ---
Author Author [facility] Organization [facility] Address Unknown Phone Unavailable Allergies Active Description Code Type Severity Reaction Onset Reported/Identified Relationship to Patient Clinical Status Yes SULFA SULFA Moderate N/A 07/13/2009 Yes Sulfa (Sulfonamide Antibiotics) [id number] Drug Allergy Unknown N/A 2017 Medications There is no data. Problems Date Dx Coded Attending Type Code Diagnosis Diagnosed By 04/12/2010 Ot 401.9 HYPERTENSION NOS 04/12/2010 Ot V43.65 KNEE JOINT REPLACEMENT STATUS 04/12/2010 Ot V54.81 AFTERCARE FOLLOWING JOINT REPLACEMENT 04/12/2010 Ot V57.1 PHYSICAL THERAPY NEC 04/29/2010 Ot 401.9 HYPERTENSION NOS 04/29/2010 Ot V43.65 KNEE JOINT REPLACEMENT STATUS 04/29/2010 Ot V54.81 AFTERCARE FOLLOWING JOINT REPLACEMENT 04/29/2010 Ot V57.1 PHYSICAL THERAPY NEC 06/19/2015 Ot V58.61 ANTICOAGULANTS,LT,CURRENT USE 06/19/2015 Ot V58.83 ENCOUNTER FOR THERAPEUTIC DRUG MONITORIN 06/19/2015 Ot V43.65 KNEE JOINT REPLACEMENT STATUS 06/19/2015 Ot V58.61 ANTICOAGULANTS,LT,CURRENT USE 06/19/2015 Ot V58.83 ENCOUNTER FOR THERAPEUTIC DRUG MONITORIN 06/19/2015 Ot V58.61 ANTICOAGULANTS,LT,CURRENT USE 06/19/2015 Ot V58.83 ENCOUNTER FOR THERAPEUTIC DRUG MONITORIN 06/19/2015 Ot V43.65 KNEE JOINT REPLACEMENT STATUS 06/19/2015 Ot V58.61 ANTICOAGULANTS,LT,CURRENT USE 06/19/2015 Ot V58.83 ENCOUNTER FOR THERAPEUTIC DRUG MONITORIN 06/20/2015 CESAR OLMSTEAD FACC, CRISTOFER CUELLAR CCDS Ot E78.0 PURE HYPERCHOLESTEROLEMIA 06/20/2015 CESAR OLMSTEAD FACC, CRISTOFER CUELLAR CCDS Ot I10 ESSENTIAL (PRIMARY) HYPERTENSION 06/20/2015 CESAR OLMSTEAD FACC, CRISTOFER CUELLAR CCDS Ot R00.2 PALPITATIONS 06/20/2015 CESAR OLMSTEAD FACC, ALI FACP CCDS Ot R06.02 SHORTNESS OF BREATH 06/20/2015 CESAR OLMSTEAD FACC, ALI FACP CCDS Ot R07.89 OTHER CHEST PAIN 06/23/2015 CESAR OLMSTEAD FACC, ALI FACP CCDS Ot E78.0 PURE HYPERCHOLESTEROLEMIA 06/23/2015 CESAR OLMSTEAD FACC, ALI FACP CCDS Ot I10 ESSENTIAL (PRIMARY) HYPERTENSION 06/23/2015 CESAR OLMSTEAD FACC, ALI FACP CCDS Ot R00.2 PALPITATIONS 06/23/2015 CESAR OLMSTEAD FACC, ALI FACP CCDS Ot R06.02 SHORTNESS OF BREATH 06/23/2015 CESAR OLMSTEAD FACC, ALI FACP CCDS Ot R07.89 OTHER CHEST PAIN 06/24/2015 Ot V58.61 ANTICOAGULANTS,LT,CURRENT USE 06/24/2015 Ot V58.83 ENCOUNTER FOR THERAPEUTIC DRUG MONITORIN 06/24/2015 Ot V43.65 KNEE JOINT REPLACEMENT STATUS 06/24/2015 Ot V58.61 ANTICOAGULANTS,LT,CURRENT USE 06/24/2015 Ot V58.83 ENCOUNTER FOR THERAPEUTIC DRUG MONITORIN 06/24/2015 CESAR OLMSTEAD FACC, ALI FACP CCDS Ot E78.0 PURE HYPERCHOLESTEROLEMIA 06/24/2015 CESAR OLMSTEAD FACC, ALI FACP CCDS Ot I10 ESSENTIAL (PRIMARY) HYPERTENSION 06/24/2015 CESAR OLMSTEAD FACC, ALI FACP CCDS Ot R00.2 PALPITATIONS 06/24/2015 CESAR OLMSTEAD FACC, ALI FACP CCDS Ot R06.02 SHORTNESS OF BREATH 06/24/2015 CESAR OLMSTEAD FACC, ALI FACP CCDS Ot R07.89 OTHER CHEST PAIN 06/24/2015 CESAR OLMSTEAD FACC, ALI FACP CCDS Ot E78.0 PURE HYPERCHOLESTEROLEMIA 06/24/2015 CESAR OLMSTEAD FACC, ALI FACP CCDS Ot I10 ESSENTIAL (PRIMARY) HYPERTENSION 06/24/2015 CESAR OLMSTEAD FACC, ALI FACP CCDS Ot R00.2 PALPITATIONS 06/24/2015 CESAR OLMSTEAD FACC, ALI FACP CCDS Ot R06.2 WHEEZING 06/24/2015 CESAR OLMSTEAD FACC, ALI FACP CCDS Ot R07.89 OTHER CHEST PAIN 06/24/2015 CESAR OLMSTEAD FACC, ALI FACP CCDS Ot E78.0 PURE HYPERCHOLESTEROLEMIA 06/24/2015 CESAR OLMSTEAD FACC, ALI FACP CCDS Ot I10 ESSENTIAL (PRIMARY) HYPERTENSION 06/24/2015 CESAR OLMSTEAD FACC, ALI FACP CCDS Ot R00.2 PALPITATIONS 06/24/2015 CESAR OLMSTEAD FACC, ALI FACP CCDS Ot R06.02 SHORTNESS OF BREATH 06/24/2015 CESAR OLMSTEAD FACC, ALI FACP CCDS Ot R07.89 OTHER CHEST PAIN 06/30/2015 CESAR OLMSTEAD FACC, ALI FACP CCDS Ot E78.0 PURE HYPERCHOLESTEROLEMIA 06/30/2015 CESAR OLMSTEAD [facility], ALI FACP CCDS Ot I10 ESSENTIAL (PRIMARY) HYPERTENSION 06/30/2015 CESAR OLMSTEAD [facility], ALI FACP CCDS Ot R00.2 PALPITATIONS 06/30/2015 CESAR OLMSTEAD [facility], ALI FACP CCDS Ot R06.2 WHEEZING 06/30/2015 CESAR OLMSTEAD [facility], ALI FACP CCDS Ot R07.89 OTHER CHEST PAIN 07/02/2015 CESAR OLMSTEAD [facility], ALI FACP CCDS Ot E78.0 PURE HYPERCHOLESTEROLEMIA 07/02/2015 CESAR OLMSTEAD [facility], ALI FACP CCDS Ot I10 ESSENTIAL (PRIMARY) HYPERTENSION 07/02/2015 CESAR OLMSTEAD [facility], ALI FACP CCDS Ot R00.2 PALPITATIONS 07/02/2015 CESAR OLMSTEAD [facility], ALI FACP CCDS Ot R06.02 SHORTNESS OF BREATH 07/02/2015 CESAR OLMSTEAD [facility], ALI FACP CCDS Ot R07.89 OTHER CHEST PAIN 07/09/2015 CESAR OLMSTEAD [facility], CRISTOFER FACP CCDS Ot E78.0 PURE HYPERCHOLESTEROLEMIA 07/09/2015 CESAR OLMSTEAD [facility], ALI FACP CCDS Ot I10 ESSENTIAL (PRIMARY) HYPERTENSION 07/09/2015 CESAR OLMSTEAD [facility], ALI FACP CCDS Ot R00.2 PALPITATIONS 07/09/2015 CESAR OLMSTEAD [facility], ALI FACP CCDS Ot R06.02 SHORTNESS OF BREATH 07/09/2015 CESAR OLMSTEAD [facility], ALI FACP CCDS Ot R07.89 OTHER CHEST PAIN 07/17/2015 DEMOND ROBERTSON APRN Ot G47.33 OBSTRUCTIVE SLEEP APNEA (ADULT) (PEDIATR 07/17/2015 CESAR OLMSTEAD FACC, ALI FACP CCDS Ot E78.0 PURE HYPERCHOLESTEROLEMIA 07/17/2015 CESAR OLMSTEAD FACC, ALI FACP CCDS Ot I10 ESSENTIAL (PRIMARY) HYPERTENSION 07/17/2015 CESAR OLMSTEAD FACC, ALI FACP CCDS Ot R00.2 PALPITATIONS 07/17/2015 CESAR OLMSTEAD FACC, ALI FACP CCDS Ot R06.02 SHORTNESS OF BREATH 07/17/2015 CESAR OLMSTEAD FACC, ALI FACP CCDS Ot R07.89 OTHER CHEST PAIN 07/17/2015 CESAR OLMSTEAD FACC, ALI FACP CCDS Ot E78.0 PURE HYPERCHOLESTEROLEMIA 07/17/2015 CESAR OLMSTEAD FACC, ALI FACP CCDS Ot I10 ESSENTIAL (PRIMARY) HYPERTENSION 07/17/2015 CESAR OLMSTEAD [facility], ALI FACP CCDS Ot R00.2 PALPITATIONS 07/17/2015 CESAR OLMSTEAD [facility], ALI FACP CCDS Ot R06.02 SHORTNESS OF BREATH 07/17/2015 CESAR OLMSTEAD [facility], ALI FACP CCDS Ot R07.89 OTHER CHEST PAIN 07/17/2015 DEMOND ROBERTSON APRN Ot G47.33 OBSTRUCTIVE SLEEP APNEA (ADULT) (PEDIATR 07/17/2015 DEMOND ROBERTSON APRN Ot G47.33 OBSTRUCTIVE SLEEP APNEA (ADULT) (PEDIATR 07/17/2015 CESAR OLMSTEAD [facility], ALI FACP CCDS Ot E78.0 PURE HYPERCHOLESTEROLEMIA 07/17/2015 CESAR OLMSTEAD [facility], ALI FACP CCDS Ot I10 ESSENTIAL (PRIMARY) HYPERTENSION 07/17/2015 CESAR OLMSTEAD [facility], ALI FACP CCDS Ot R00.2 PALPITATIONS 07/17/2015 CESAR OLMSTEAD [facility], ALI FACP CCDS Ot R06.02 SHORTNESS OF BREATH 07/17/2015 CESAR OLMSTEAD [facility], ALI FACP CCDS Ot R07.89 OTHER CHEST PAIN 07/22/2015 CESAR OLMSTEAD [facility], ALI FACP CCDS Ot E78.0 PURE HYPERCHOLESTEROLEMIA 07/22/2015 CESAR OLMSTEAD FACC, ALI FACP CCDS Ot I10 ESSENTIAL (PRIMARY) HYPERTENSION 07/22/2015 CESAR OLMSTEAD FACC, ALI FACP CCDS Ot R00.2 PALPITATIONS 07/22/2015 CESAR OLMSTEAD FACC, ALI FACP CCDS Ot R06.2 WHEEZING 07/22/2015 CESAR OLMSTEAD [facility], ALI FACP CCDS Ot R07.89 OTHER CHEST PAIN 07/22/2015 CESAR OLMSTEAD FACC, CRISTOFER FACP CCDS Ot E78.0 PURE HYPERCHOLESTEROLEMIA 07/22/2015 CESAR OLMSTEAD FACC, CRISTOFER FACP CCDS Ot I10 ESSENTIAL (PRIMARY) HYPERTENSION 07/22/2015 CESAR OLMSTEAD FACC, CRISTOFER FACP CCDS Ot R00.2 PALPITATIONS 07/22/2015 ECSAR OLMSTEAD FACC, CRISTOFER FACP CCDS Ot R06.02 SHORTNESS OF BREATH 07/22/2015 CESAR OLMSTEAD FACC, CRISTOFER FACP CCDS Ot R07.89 OTHER CHEST PAIN 07/23/2015 STEPHANIE CARLSON DO M Ot G47.83 07/23/2015 DEMOND ROBERTSON APRN Ot G47.33 OBSTRUCTIVE SLEEP APNEA (ADULT) (PEDIATR 07/24/2015 ROBYN DOSTEPHANIE M Ot G47.83 07/24/2015 ROBYNSTEPHANIE ABERNATHY DO M Ot G47.33 OBSTRUCTIVE SLEEP APNEA (ADULT) (PEDIATR 07/24/2015 STEPHANIE CARLSON DO M Ot R06.02 SHORTNESS OF BREATH 08/23/2015 ROBYNSTEPHANIE ABERNATHY DO Ot G47.33 OBSTRUCTIVE SLEEP APNEA (ADULT) (PEDIATR 08/23/2015 ROBYN АНДРЕЙ ASIFSON M Ot R06.02 SHORTNESS OF BREATH 09/21/2015 CESAR OLMSTEAD FACC, CRISTOFER FACP CCDS Ot E78.0 PURE HYPERCHOLESTEROLEMIA 09/21/2015 CESAR OLMSTEAD FACC, CRISTOFER FACP CCDS Ot I10 ESSENTIAL (PRIMARY) HYPERTENSION 09/21/2015 CESAR OLMSTEAD FACC, CRISTOFER FACP CCDS Ot R00.2 PALPITATIONS 09/21/2015 CESAR OLMSTEAD FACC, ALI FACP CCDS Ot R06.2 WHEEZING 09/21/2015 CESAR OLMSTEAD FACC, CRISTOFER FACP CCDS Ot R07.89 OTHER CHEST PAIN 04/12/2016 CESAR OLMSTEAD FACC, CRISTOFER FACP CCDS Ot E78.0 PURE HYPERCHOLESTEROLEMIA 04/12/2016 CESAR OLMSTEAD FACC, ALI FACP CCDS Ot I10 ESSENTIAL (PRIMARY) HYPERTENSION 04/12/2016 CESAR OLMSTEAD FACC, CRISTOFER FACP CCDS Ot R00.2 PALPITATIONS 04/12/2016 CESAR OLMSTEAD FACC, CRISTOFER FACP CCDS Ot R06.02 SHORTNESS OF BREATH 04/12/2016 CESAR OLMSTEAD FACC, CRISTOFER FACP CCDS Ot R07.89 OTHER CHEST PAIN 04/12/2016 CESAR ANDERSONC, ALI FACP CCDS Ot E78.0 PURE HYPERCHOLESTEROLEMIA 04/12/2016 CESAR ANDERSONC, ALI FACP CCDS Ot I10 ESSENTIAL (PRIMARY) HYPERTENSION 04/12/2016 CESAR ANDERSONC, ALI FACP CCDS Ot R00.2 PALPITATIONS 04/12/2016 CESAR OLMSTEAD FACC, ALI FACP CCDS Ot R06.02 SHORTNESS OF BREATH 04/12/2016 CESAR ANDERSONC, ALI FACP CCDS Ot R07.89 OTHER CHEST PAIN 04/12/2016 STEPHANIE CARLSON DO Ot G47.33 OBSTRUCTIVE SLEEP APNEA (ADULT) (PEDIATR 04/12/2016 STEPHANIE CARLSON DO Ot R06.02 SHORTNESS OF BREATH 04/12/2016 CESAR ANDERSONC, ALI FACP CCDS Ot E78.0 PURE HYPERCHOLESTEROLEMIA 04/12/2016 CESAR ANDERSONC, ALI FACP CCDS Ot I10 ESSENTIAL (PRIMARY) HYPERTENSION 04/12/2016 CESAR ANDERSONC, ALI FACP CCDS Ot R00.2 PALPITATIONS 04/12/2016 CESAR OLMSTEAD FACC, ALI FACP CCDS Ot R06.02 SHORTNESS OF BREATH 04/12/2016 CESAR OLMSTEAD FACC, ALI FACP CCDS Ot R07.89 OTHER CHEST PAIN 04/12/2016 CESAR OLMSTEAD FACC, ALI FACP CCDS Ot E78.0 PURE HYPERCHOLESTEROLEMIA 04/12/2016 CESAR ANDERSONC, ALI FACP CCDS Ot I10 ESSENTIAL (PRIMARY) HYPERTENSION 04/12/2016 CESAR OLMSTEAD FACC, ALI FACP CCDS Ot R00.2 PALPITATIONS 04/12/2016 CESAR ANDERSON, ALI FACP CCDS Ot R06.2 WHEEZING 04/12/2016 CESAR ANDERSON, ALI FACP CCDS Ot R07.89 OTHER CHEST PAIN 04/14/2016 CESAR OLMSTEAD FACC, ALI FACP CCDS Ot E11.9 TYPE 2 DIABETES MELLITUS WITHOUT COMPLIC 04/14/2016 CESAR OLMSTEAD FACC, ALI FACP CCDS Ot E78.5 HYPERLIPIDEMIA, UNSPECIFIED 04/14/2016 CESAR ANDERSONC, ALI FACP CCDS Ot G47.33 OBSTRUCTIVE SLEEP APNEA (ADULT) (PEDIATR 04/14/2016 CESAR MD FACC, ALI FACP CCDS Ot I10 ESSENTIAL (PRIMARY) HYPERTENSION 04/14/2016 CESAR ANDERSONC, ALI FACP CCDS Ot I25.10 ATHSCL HEART DISEASE OF [place] CORONARY 04/14/2016 CESAR OLMSTEAD FACC, ALI FACP CCDS Ot I25.84 CORONARY ATHEROSCLEROSIS DUE TO CALCIFIE 04/14/2016 CESAR OLMSTEAD FACC, ALI FACP CCDS Ot R00.2 PALPITATIONS 04/14/2016 CESAR OLMSTEAD FACC, ALI FACP CCDS Ot Z79.899 OTHER OFFICE AUTOMATION CLERK (CURRENT) DRUG THERAPY 04/20/2016 CESAR OLMSTEAD FACC, ALI FACP CCDS Ot E11.9 TYPE 2 DIABETES MELLITUS WITHOUT COMPLIC 04/20/2016 CESAR OLMSTEAD FACC, ALI FACP CCDS Ot E78.5 HYPERLIPIDEMIA, UNSPECIFIED 04/20/2016 CESAR OLMSTEAD FACC, ALI FACP CCDS Ot G47.33 OBSTRUCTIVE SLEEP APNEA (ADULT) (PEDIATR 04/20/2016 CESAR OLMSTEAD FACC, ALI FACP CCDS Ot I10 ESSENTIAL (PRIMARY) HYPERTENSION 04/20/2016 CESAR OLMSTEAD FACC, ALI FACP CCDS Ot I25.10 ATHSCL HEART DISEASE OF [place] CORONARY 04/20/2016 CESAR OLMSTEAD FACC, ALI FACP CCDS Ot I25.84 CORONARY ATHEROSCLEROSIS DUE TO CALCIFIE 04/20/2016 CESAR OLMSTEAD FACC, ALI FACP CCDS Ot R00.2 PALPITATIONS 04/20/2016 CESAR OLMSTEAD FACC, ALI FACP CCDS Ot Z79.899 OTHER OFFICE AUTOMATION CLERK (CURRENT) DRUG THERAPY 12/30/2017 CESAR OLMSTEAD FACC, CRISTOFER FACP CCDS Ot E78.0 PURE HYPERCHOLESTEROLEMIA 12/30/2017 CESAR OLMSTEAD FACC, ALI FACP CCDS Ot I10 ESSENTIAL (PRIMARY) HYPERTENSION 12/30/2017 CESAR OLMSTEAD FACC, ALI FACP CCDS Ot R00.2 PALPITATIONS 12/30/2017 CESAR OLMSTEAD FACC, ALI FACP CCDS Ot R06.02 SHORTNESS OF BREATH 12/30/2017 CESAR OLMSTEAD FACC, ALI FACP CCDS Ot R07.89 OTHER CHEST PAIN 12/30/2017 CESAR OLMSTEAD FACC, ALI FACP CCDS Ot E78.0 PURE HYPERCHOLESTEROLEMIA 12/30/2017 CESAR OLMSTEAD FACC, ALI FACP CCDS Ot I10 ESSENTIAL (PRIMARY) HYPERTENSION 12/30/2017 CESAR ANDERSONC, ALI FACP CCDS Ot R00.2 PALPITATIONS 12/30/2017 CESAR OLMSTEAD FACC, ALI FACP CCDS Ot R06.02 SHORTNESS OF BREATH 12/30/2017 CESAR OLMSTEAD FACC, ALI FACP CCDS Ot R07.89 OTHER CHEST PAIN 12/30/2017 ROBYN ASIF STEPHANIE Cabrera Ot G47.33 OBSTRUCTIVE SLEEP APNEA (ADULT) (PEDIATR 12/30/2017 ROBYN ASIF STEPHANIE Cabrera Ot R06.02 SHORTNESS OF BREATH 12/30/2017 CESAR OLMSTEAD FACC, ALI FACP CCDS Ot E78.0 PURE HYPERCHOLESTEROLEMIA 12/30/2017 CESAR OLMSTEAD FACC, ALI FACP CCDS Ot I10 ESSENTIAL (PRIMARY) HYPERTENSION 12/30/2017 CESAR ANDERSONC, ALI FACP CCDS Ot R00.2 PALPITATIONS 12/30/2017 CESAR OLMSTEAD FACC, ALI FACP CCDS Ot R06.02 SHORTNESS OF BREATH 12/30/2017 CESAR ANDERSONC, ALI FACP CCDS Ot R07.89 OTHER CHEST PAIN 12/30/2017 CESAR ANDERSONC, ALI FACP CCDS Ot E78.0 PURE HYPERCHOLESTEROLEMIA 12/30/2017 CESAR OLMSTEAD FACC, ALI FACP CCDS Ot I10 ESSENTIAL (PRIMARY) HYPERTENSION 12/30/2017 CESAR ANDERSONC, ALI FACP CCDS Ot R00.2 PALPITATIONS 12/30/2017 CESAR ANDERSONC, ALI FACP CCDS Ot R06.2 WHEEZING 12/30/2017 CESAR ANDERSONC, ALI FACP CCDS Ot R07.89 OTHER CHEST PAIN 01/03/2018 CESAR ANDERSONC, ALI FACP CCDS Ot E78.0 PURE HYPERCHOLESTEROLEMIA 01/03/2018 CESAR OLMSTEAD FACC, ALI FACP CCDS Ot I10 ESSENTIAL (PRIMARY) HYPERTENSION 01/03/2018 CESAR ANDERSONC, ALI FACP CCDS Ot R00.2 PALPITATIONS 01/03/2018 CESAR OLMSTEAD FACC, ALI FACP CCDS Ot R06.02 SHORTNESS OF BREATH 01/03/2018 CESAR OLMSTEAD FACC, ALI FACP CCDS Ot R07.89 OTHER CHEST PAIN 01/03/2018 CESAR ANDERSONC, ALI FACP CCDS Ot E78.0 PURE HYPERCHOLESTEROLEMIA 01/03/2018 CESAR OLMSTEAD FACC, ALI FACP CCDS Ot I10 ESSENTIAL (PRIMARY) HYPERTENSION 01/03/2018 CESAR OLMSTEAD FACC, ALI FACP CCDS Ot R00.2 PALPITATIONS 01/03/2018 CESAR OLMSTEAD FACC, ALI FACP CCDS Ot R06.02 SHORTNESS OF BREATH 01/03/2018 CESAR OLMSTEAD FACC, ALI FACP CCDS Ot R07.89 OTHER CHEST PAIN 01/03/2018 STEPHANIE CARLSON DO Ot G47.33 OBSTRUCTIVE SLEEP APNEA (ADULT) (PEDIATR 01/03/2018 STEPHANIE CARLSON DO Ot R06.02 SHORTNESS OF BREATH 01/03/2018 CESAR OLMSTEAD FACC, ALI FACP CCDS Ot E78.0 PURE HYPERCHOLESTEROLEMIA 01/03/2018 CESAR ANDERSONC, ALI FACP CCDS Ot I10 ESSENTIAL (PRIMARY) HYPERTENSION 01/03/2018 CESAR ANDERSONC, ALI FACP CCDS Ot R00.2 PALPITATIONS 01/03/2018 CESAR ANDERSONC, ALI FACP CCDS Ot R06.02 SHORTNESS OF BREATH 01/03/2018 CESAR ANDERSONC, ALI FACP CCDS Ot R07.89 OTHER CHEST PAIN 01/03/2018 CESAR ANDERSONC, ALI FACP CCDS Ot E78.0 PURE HYPERCHOLESTEROLEMIA 01/03/2018 CESAR ANDERSONC, ALI FACP CCDS Ot I10 ESSENTIAL (PRIMARY) HYPERTENSION 01/03/2018 CESAR ANDERSONC, ALI FACP CCDS Ot R00.2 PALPITATIONS 01/03/2018 CESAR ANDERSONC, ALI FACP CCDS Ot R06.2 WHEEZING 01/03/2018 CESAR ANDERSONC, ALI FACP CCDS Ot R07.89 OTHER CHEST PAIN 01/03/2018 CESAR ANDERSONC, ALI FACP CCDS Ot E78.0 PURE HYPERCHOLESTEROLEMIA 01/03/2018 CESAR OLMSTEAD FACC, ALI FACP CCDS Ot I10 ESSENTIAL (PRIMARY) HYPERTENSION 01/03/2018 CESAR ANDERSONC, ALI FACP CCDS Ot R00.2 PALPITATIONS 01/03/2018 CESAR ANDERSONC, ALI FACP CCDS Ot R06.02 SHORTNESS OF BREATH 01/03/2018 CESAR ANDERSONC, ALI FACP CCDS Ot R07.89 OTHER CHEST PAIN 01/03/2018 CESAR ANDERSONC, ALI FACP CCDS Ot E78.0 PURE HYPERCHOLESTEROLEMIA 01/03/2018 CESAR OLMSTEAD FACC, ALI FACP CCDS Ot I10 ESSENTIAL (PRIMARY) HYPERTENSION 01/03/2018 [facility]AR OLMSTEAD [facility], [facility]I FACP CCDS Ot R00.2 PALPITATIONS 01/03/2018 CESAR OLMSTEAD [facility], ALI FACP CCDS Ot R06.02 SHORTNESS OF BREATH 01/03/2018 CESAR OLMSTEAD [facility], ALI FACP CCDS Ot R07.89 OTHER CHEST PAIN 01/03/2018 STEPHANIE CARLSON DO Ot G47.33 OBSTRUCTIVE SLEEP APNEA (ADULT) (PEDIATR 01/03/2018 STEPHANIE CARLSON DO Ot R06.02 SHORTNESS OF BREATH 01/03/2018 CESAR OLMSTEAD [facility], ALI FACP CCDS Ot E78.0 PURE HYPERCHOLESTEROLEMIA 01/03/2018 CESAR OLMSTEAD [facility], ALI FACP CCDS Ot I10 ESSENTIAL (PRIMARY) HYPERTENSION 01/03/2018 CESAR OLMSTEAD [facility], ALI FACP CCDS Ot R00.2 PALPITATIONS 01/03/2018 CESAR OLMSTEAD [facility], ALI FACP CCDS Ot R06.02 SHORTNESS OF BREATH 01/03/2018 CESAR OLMSTEAD [facility], ALI FACP CCDS Ot R07.89 OTHER CHEST PAIN 01/03/2018 CESAR OLMSTEAD [facility], ALI FACP CCDS Ot E78.0 PURE HYPERCHOLESTEROLEMIA 01/03/2018 CESAR OLMSTEAD [facility], ALI FACP CCDS Ot I10 ESSENTIAL (PRIMARY) HYPERTENSION 01/03/2018 CESAR OLMSTEAD [facility], ALI FACP CCDS Ot R00.2 PALPITATIONS 01/03/2018 CESAR OLMSTEAD [facility], ALI FACP CCDS Ot R06.2 WHEEZING 01/03/2018 CESAR OLMSTEAD [facility], ALI FACP CCDS Ot R07.89 OTHER CHEST PAIN 01/04/2018 SHIREEN KENNEDY PICKLER HELPER Ot I08.3 COMB RHEUMATIC DISORD OF MITRAL, AORTIC 01/04/2018 SHIREEN KENNEDY L PICKLER HELPER Ot I10 ESSENTIAL (PRIMARY) HYPERTENSION 01/04/2018 SHIREEN KENNEDY L PICKLER HELPER Ot I25.10 ATHSCL HEART DISEASE OF [place] CORONARY 01/17/2018 CESAR OLMSTEAD [facility], ALI FACP CCDS Ot E78.0 PURE HYPERCHOLESTEROLEMIA 01/17/2018 CESAR OLMSTEAD [facility], ALI FACP CCDS Ot I10 ESSENTIAL (PRIMARY) HYPERTENSION 01/17/2018 CESAR ANDERSONC, ALI FACP CCDS Ot R00.2 PALPITATIONS 01/17/2018 CESAR OLMSTEAD FACC, ALI FACP CCDS Ot R06.2 WHEEZING 01/17/2018 CESAR ANDERSONC, ALI FACP CCDS Ot R07.89 OTHER CHEST PAIN 01/17/2018 CESAR OLMSTEAD FACC, ALI FACP CCDS Ot E11.9 TYPE 2 DIABETES MELLITUS WITHOUT COMPLIC 01/17/2018 CESAR ANDERSONC, ALI FACP CCDS Ot E66.9 OBESITY, UNSPECIFIED 01/17/2018 CESAR ANDERSONC, ALI FACP CCDS Ot E78.5 HYPERLIPIDEMIA, UNSPECIFIED 01/17/2018 CESAR ANDERSONC, ALI FACP CCDS Ot G47.33 OBSTRUCTIVE SLEEP APNEA (ADULT) (PEDIATR 01/17/2018 CESAR ANDERSONC, ALI FACP CCDS Ot I10 ESSENTIAL (PRIMARY) HYPERTENSION 01/17/2018 CESAR OLMSTEAD FACC, ALI FACP CCDS Ot I25.10 ATHSCL HEART DISEASE OF [place] CORONARY 01/17/2018 CESAR OLMSTEAD FACC, ALI FACP CCDS Ot R00.2 PALPITATIONS 01/17/2018 CESAR OLMSTEAD FACC, ALI FACP CCDS Ot R06.09 OTHER FORMS OF DYSPNEA 01/17/2018 CESAR OLMSTEAD FACC, ALI FACP CCDS Ot R07.89 OTHER CHEST PAIN 01/17/2018 CESAR OLMSTEAD FACC, ALI FACP CCDS Ot Z68.33 BODY MASS INDEX (BMI) 33.0-33.9, ADULT 01/17/2018 CESAR OLMSTEAD FACC, ALI FACP CCDS Ot Z79.02 [facility] (CURRENT) USE OF ANTITHROMBOTI 01/17/2018 CESAR OLMSTEAD FACC, ALI FACP CCDS Ot Z79.82 OFFICE AUTOMATION CLERK (CURRENT) USE OF ASPIRIN 01/17/2018 CESAR OLMSTEAD FACC, ALI FACP CCDS Ot Z79.84 [facility] (CURRENT) USE OF ORAL HYPOGLYC 01/17/2018 CESAR OLMSTEAD FACC, ALI FACP CCDS Ot Z79.899 OTHER [facility] (CURRENT) DRUG THERAPY 01/17/2018 CESAR OLMSTEAD FACC, ALI FACP CCDS Ot Z95.5 PRESENCE OF CORONARY ANGIOPLASTY IMPLANT 01/17/2018 CESAR OLMSTEAD FACC, CRISTOFER FACP CCDS Ot Z96.653 PRESENCE OF ARTIFICIAL KNEE JOINT, BILAT 01/23/2018 CESAR OLMSTEAD FACC, ALI FACP CCDS Ot E11.9 TYPE 2 DIABETES MELLITUS WITHOUT COMPLIC 01/23/2018 CESAR OLMSTEAD FACC, ALI FACP CCDS Ot E66.9 OBESITY, UNSPECIFIED 01/23/2018 CESAR OLMSTEAD FACC, ALI FACP CCDS Ot E78.5 HYPERLIPIDEMIA, UNSPECIFIED 01/23/2018 CESAR OLMSTEAD FACC, ALI FACP CCDS Ot G47.33 OBSTRUCTIVE SLEEP APNEA (ADULT) (PEDIATR 01/23/2018 CESAR OLMSTEAD FACC, ALI FACP CCDS Ot I10 ESSENTIAL (PRIMARY) HYPERTENSION 01/23/2018 CESAR OLMSTEAD FACC, ALI FACP CCDS Ot I25.10 ATHSCL HEART DISEASE OF [place] CORONARY 01/23/2018 CESAR OLMSTEAD FACC, CRISTOFER FACP CCDS Ot R00.2 PALPITATIONS 01/23/2018 CESAR OLMSTEAD FACC, CRISTOFER FACP CCDS Ot R06.09 OTHER FORMS OF DYSPNEA 01/23/2018 CESAR OLMSTEAD FACC, CRISTOFER FACP CCDS Ot R07.89 OTHER CHEST PAIN 01/23/2018 CESAR OLMSTEAD FACC, ALI FACP CCDS Ot Z68.33 BODY MASS INDEX (BMI) 33.0-33.9, ADULT 01/23/2018 CESAR OLMSTEAD FACC, ALI FACP CCDS Ot Z79.02 FCI (CURRENT) USE OF ANTITHROMBOTI 01/23/2018 CRISTOFER GUERRERO MD, FACC FACP CCDS Ot Z79.82 OFFICE AUTOMATION CLERK (CURRENT) USE OF ASPIRIN 01/23/2018 CESAR OLMSTEAD FACC, CRISTOFER FACP CCDS Ot Z79.84 OFFICE AUTOMATION CLERK (CURRENT) USE OF ORAL HYPOGLYC 01/23/2018 CESAR OLMSTEAD FACC, ALI FACP CCDS Ot Z79.899 OTHER OFFICE AUTOMATION CLERK (CURRENT) DRUG THERAPY 01/23/2018 CESAR OLMSTEAD FACC, CRISTOFER FACP CCDS Ot Z95.5 PRESENCE OF CORONARY ANGIOPLASTY IMPLANT 01/23/2018 CESAR OLMSTEAD FACC, CRISTOFER FACP CCDS Ot Z96.653 PRESENCE OF ARTIFICIAL KNEE JOINT, BILAT 01/23/2018 CESAR OLMSTEAD FACC, ALI FACP CCDS Ot E11.9 TYPE 2 DIABETES MELLITUS WITHOUT COMPLIC 01/23/2018 CESAR OLMSTEAD FACC, CRISTOFER FACP CCDS Ot E66.9 OBESITY, UNSPECIFIED 01/23/2018 CESAR OLMSTEAD FACC, ALI FACP CCDS Ot E78.5 HYPERLIPIDEMIA, UNSPECIFIED 01/23/2018 CESAR OLMSTEAD FACC, ALI FACP CCDS Ot G47.33 OBSTRUCTIVE SLEEP APNEA (ADULT) (PEDIATR 01/23/2018 CESAR OLMSTEAD FACC, ALI FACP CCDS Ot I10 ESSENTIAL (PRIMARY) HYPERTENSION 01/23/2018 CESAR OLMSTEAD FACC, ALI FACP CCDS Ot I25.10 ATHSCL HEART DISEASE OF [place] CORONARY 01/23/2018 CESAR OLMSTEAD FACC, CRISTOFER FACP CCDS Ot R00.2 PALPITATIONS 01/23/2018 CESAR OLMSTEAD FACC, ALI FACP CCDS Ot R06.09 OTHER FORMS OF DYSPNEA 01/23/2018 CESAR OLMSTEAD FACC, ALI FACP CCDS Ot R07.89 OTHER CHEST PAIN 01/23/2018 CESAR OLMSTEAD FACC, CRISTOFER FACP CCDS Ot Z68.33 BODY MASS INDEX (BMI) 33.0-33.9, ADULT 01/23/2018 CESAR OLMSTEAD FACC, ALI FACP CCDS Ot Z79.02 FCI (CURRENT) USE OF ANTITHROMBOTI 01/23/2018 CESAR OLMSTEAD FACC, CRISTOFER FACP CCDS Ot Z79.82 OFFICE AUTOMATION CLERK (CURRENT) USE OF ASPIRIN 01/23/2018 CESAR OLMSTEAD FACC, ALI FACP CCDS Ot Z79.84 OFFICE AUTOMATION CLERK (CURRENT) USE OF ORAL HYPOGLYC 01/23/2018 CESAR OLMSTEAD FACC, CRISTOFER FACP CCDS Ot Z79.899 OTHER FCI (CURRENT) DRUG THERAPY 01/23/2018 CRISTOFER GUERRERO MD, FACC FACP CCDS Ot Z95.5 PRESENCE OF CORONARY ANGIOPLASTY IMPLANT 01/23/2018 CESAR OLMSTEAD FACC, ALI FACP CCDS Ot Z96.653 PRESENCE OF ARTIFICIAL KNEE JOINT, BILAT 01/24/2018 CESAR OLMSTEAD FACC, ALI FACP CCDS Ot E11.9 TYPE 2 DIABETES MELLITUS WITHOUT COMPLIC 01/24/2018 CESAR OLMSTEAD FACC, ALI FACP CCDS Ot E66.9 OBESITY, UNSPECIFIED 01/24/2018 CESAR OLMSTEAD FACC, ALI FACP CCDS Ot E78.5 HYPERLIPIDEMIA, UNSPECIFIED 01/24/2018 CESAR OLMSTEAD FACC, CRISTOFER FACP CCDS Ot G47.33 OBSTRUCTIVE SLEEP APNEA (ADULT) (PEDIATR 01/24/2018 CESAR OLMSTEAD FACC, ALI FACP CCDS Ot I10 ESSENTIAL (PRIMARY) HYPERTENSION 01/24/2018 CESAR OLMSTEAD FACC, ALI FACP CCDS Ot I25.10 ATHSCL HEART DISEASE OF [place] CORONARY 01/24/2018 CESAR OLMSTEAD FACC, CRISTOFER FACP CCDS Ot R00.2 PALPITATIONS 01/24/2018 CESAR OLMSTEAD FACC, CRISTOFER FACP CCDS Ot R06.09 OTHER FORMS OF DYSPNEA 01/24/2018 CESAR OLMSTEAD FACC, ALI FACP CCDS Ot R07.89 OTHER CHEST PAIN 01/24/2018 CESAR OLMSTEAD FACC, CRISTOFER FACP CCDS Ot Z68.33 BODY MASS INDEX (BMI) 33.0-33.9, ADULT 01/24/2018 CRISTOFER GUERRERO MD, FACC FACP CCDS Ot Z79.02 OFFICE AUTOMATION CLERK (CURRENT) USE OF ANTITHROMBOTI 01/24/2018 CRISTOFER GUERRERO MD, FACC FACP CCDS Ot Z79.82 OFFICE AUTOMATION CLERK (CURRENT) USE OF ASPIRIN 01/24/2018 CRISTOFER GUERRERO MD, FACC FACP CCDS Ot Z79.84 OFFICE AUTOMATION CLERK (CURRENT) USE OF ORAL HYPOGLYC 01/24/2018 CRISTOFER GUERRERO MD, FACC FACP CCDS Ot Z79.899 OTHER FCI (CURRENT) DRUG THERAPY 01/24/2018 CRISTOFER GUERRERO MD, FACC FACP CCDS Ot Z95.5 PRESENCE OF CORONARY ANGIOPLASTY IMPLANT 01/24/2018 CRISTOFER GUERRERO MD, FACC FACP CCDS Ot Z96.653 PRESENCE OF ARTIFICIAL KNEE JOINT, BILAT 01/25/2018 SHIREEN KENNEDY PICKLER HELPER Ot I08.3 COMB RHEUMATIC DISORD OF [place], AORTIC 01/25/2018 SHIREEN KENNEDY PICKLER HELPER Ot I10 ESSENTIAL (PRIMARY) HYPERTENSION 01/25/2018 SHIREEN KENNEDY PICKLER HELPER Ot I25.10 ATHSCL HEART DISEASE OF [place] CORONARY 04/27/2018 DEMOND ROBERTSON APRN Ot G47.33 OBSTRUCTIVE SLEEP APNEA (ADULT) (PEDIATR 04/27/2018 DEMOND ROBERTSON APRN Ot J30.9 ALLERGIC RHINITIS, UNSPECIFIED 04/27/2018 AILYN, DEMOND E STONE POLISHER MACHINE Ot G47.33 OBSTRUCTIVE SLEEP APNEA (ADULT) (PEDIATR 04/27/2018 DEMOND ROBERTSON APRN Ot J30.9 ALLERGIC RHINITIS, UNSPECIFIED 05/18/2018 DEMOND ROBERTSON APRN Ot G47.33 OBSTRUCTIVE SLEEP APNEA (ADULT) (PEDIATR 05/18/2018 DEMOND ROBERTSON APRN Ot J30.9 ALLERGIC RHINITIS, UNSPECIFIED 05/19/2018 DIANNE ARAUJO MD Ot K63.89 OTHER SPECIFIED DISEASES OF INTESTINE 05/19/2018 DIANNE ARAUJO MD Ot K76.0 FATTY (CHANGE OF) LIVER, NOT ELSEWHERE C 05/19/2018 DIANNE ARAUJO MD Ot Z87.19 PERSONAL HISTORY OF OTHER DISEASES OF TH 05/19/2018 DIANNE ARAUJO MD Ot Z90.49 ACQUIRED ABSENCE OF OTHER SPECIFIED PART 05/19/2018 DEMOND ROBERTSON APRN Ot G47.33 OBSTRUCTIVE SLEEP APNEA (ADULT) (PEDIATR 05/19/2018 DEMOND ROBERTSON APRN Ot J30.9 ALLERGIC RHINITIS, UNSPECIFIED 05/23/2018 YUKO MORTENSEN MD Ot Z01.818 ENCOUNTER FOR OTHER PREPROCEDURAL EXAMIN 05/24/2018 YUKO MORTENSEN MD Ot Z01.818 ENCOUNTER FOR OTHER PREPROCEDURAL EXAMIN Procedures There is no data. Results Test Result Range Automated blood complete blood count (hemogram) panel - 04/13/16 07:28 Blood leukocytes automated count (number/volume) 8.6 10*3/uL 4.3-11.0 Blood erythrocytes automated count (number/volume) 4.86 10*6/uL 4.35-5.85 Venous blood hemoglobin measurement (mass/volume) 14.4 g/dL 11.5-16.0 Blood hematocrit (volume fraction) 41 % 35-52 Automated erythrocyte mean corpuscular volume 85 [foz_us] 80-99 Automated erythrocyte mean corpuscular hemoglobin (mass per erythrocyte) 30 pg 25-34 Automated erythrocyte mean corpuscular hemoglobin concentration measurement ( mass/volume) 35 g/dL 32-36 Automated erythrocyte distribution width ratio 12.9 % 10.0-14.5 Automated blood platelet count (count/volume) 240 10*3/uL 130-400 Automated blood platelet mean volume measurement 9.8 [foz_us] 7.4-10.4 PT panel in platelet poor plasma by coagulation assay - 04/13/16 07:28 Prothrombin time (PT) in platelet poor plasma by coagulation assay 13.1 s 12.2-14.7 INR in platelet poor plasma or blood by coagulation assay 1.0 0.8-1.4 Activated partial thromboplastin time (aPTT) in platelet poor plasma bycoagulation assay - 04/13/16 07:28 Activated partial thromboplastin time (aPTT) in platelet poor plasma bycoagulation assay 24 s 24-35 Comprehensive metabolic panel - 04/13/16 07:28 Serum or plasma sodium measurement (moles/volume) 137 mmol/L 135-145 Serum or plasma potassium measurement (moles/volume) 4.4 mmol/L 3.6-5.0 Serum or plasma chloride measurement (moles/volume) 101 mmol/L 98-107 Carbon dioxide 24 mmol/L 21-32 Serum or plasma anion gap determination (moles/volume) 12 mmol/L 5-14 Serum or plasma urea nitrogen measurement (mass/volume) 18 mg/dL 7-18 Serum or plasma creatinine measurement (mass/volume) 1.09 mg/dL 0.60-1.30 Serum or plasma urea nitrogen/creatinine mass ratio 17 NRG Serum or plasma creatinine measurement with calculation of estimated glomerular filtration rate 50 NRG Serum or plasma glucose measurement (mass/volume) 276 mg/dL 70-105 Serum or plasma calcium measurement (mass/volume) 10.2 mg/dL 8.5-10.1 Serum or plasma total bilirubin measurement (mass/volume) 0.6 mg/dL 0.1-1.0 Serum or plasma alkaline phosphatase measurement (enzymatic activity/volume) 107 U/L 40-136 Serum or plasma aspartate aminotransferase measurement (enzymatic activity/ volume) 24 U/L 5-34 Serum or plasma alanine aminotransferase measurement (enzymatic activity/volume ) 32 U/L 0-55 Serum or plasma protein measurement (mass/volume) 7.7 g/dL 6.4-8.2 Serum or plasma albumin measurement (mass/volume) 4.5 g/dL 3.2-4.5 Lipid 1996 panel - 04/13/16 07:28 Serum or plasma triglyceride measurement (mass/volume) 197 mg/dL <150 Serum or plasma cholesterol measurement (mass/volume) 285 mg/dL < 200 Serum or plasma cholesterol in HDL measurement (mass/volume) 52 mg/ dL 40-60 Cholesterol in LDL [mass/volume] in serum or plasma by direct assay 203 mg/dL 1-129 Serum or plasma cholesterol in VLDL measurement (mass/volume) 39 mg/ dL 5-40 Methicillin resistant Staphylococcus aureus (MRSA) screening culture - 07:28 Methicillin resistant Staphylococcus aureus (MRSA) screening culture NEG NRG Activated partial thromboplastin time (aPTT) in platelet poor plasma bycoagulation assay - 04/13/16 11:58 Activated partial thromboplastin time (aPTT) in platelet poor plasma bycoagulation assay 43 s 24-35 Capillary blood glucose measurement by glucometer (mass/volume) - 04/13/16 16: 18 Capillary blood glucose measurement by glucometer (mass/volume) 145 mg/dL 70-110 Capillary blood glucose measurement by glucometer (mass/volume) - 04/13/16 20: 45 Capillary blood glucose measurement by glucometer (mass/volume) 253 mg/dL 70-110 Automated blood complete blood count (hemogram) panel - 04/14/16 03:35 Blood leukocytes automated count (number/volume) 8.3 10*3/uL 4.3-11.0 Blood erythrocytes automated count (number/volume) 4.54 10*6/uL 4.35-5.85 Venous blood hemoglobin measurement (mass/volume) 13.3 g/dL 11.5-16.0 Blood hematocrit (volume fraction) 40 % 35-52 Automated erythrocyte mean corpuscular volume 87 [foz_us] 80-99 Automated erythrocyte mean corpuscular hemoglobin (mass per erythrocyte) 29 pg 25-34 Automated erythrocyte mean corpuscular hemoglobin concentration measurement ( mass/volume) 34 g/dL 32-36 Automated erythrocyte distribution width ratio 12.9 % 10.0-14.5 Automated blood platelet count (count/volume) 200 10*3/uL 130-400 Automated blood platelet mean volume measurement 10.2 [foz_us] 7.4-10.4 Whole blood basic metabolic panel - 04/14/16 03:35 Serum or plasma sodium measurement (moles/volume) 138 mmol/L 135-145 Serum or plasma potassium measurement (moles/volume) 4.1 mmol/L 3.6-5.0 Serum or plasma chloride measurement (moles/volume) 103 mmol/L 98-107 Carbon dioxide 24 mmol/L 21-32 Serum or plasma anion gap determination (moles/volume) 11 mmol/L 5-14 Serum or plasma urea nitrogen measurement (mass/volume) 16 mg/dL 7-18 Serum or plasma creatinine measurement (mass/volume) 0.91 mg/dL 0.60-1.30 Serum or plasma urea nitrogen/creatinine mass ratio 18 NRG Serum or plasma creatinine measurement with calculation of estimated glomerular filtration rate > NRG Serum or plasma glucose measurement (mass/volume) 251 mg/dL 70-105 Serum or plasma calcium measurement (mass/volume) 9.6 mg/dL 8.5-10.1 Capillary blood glucose measurement by glucometer (mass/volume) - 04/14/16 06: 04 Capillary blood glucose measurement by glucometer (mass/volume) 271 mg/dL 70-110 Automated blood complete blood count (hemogram) panel - 01/17/18 11:26 Blood leukocytes automated count (number/volume) 9.2 10*3/uL 4.3-11.0 Blood erythrocytes automated count (number/volume) 4.84 10*6/uL 4.35-5.85 Venous blood hemoglobin measurement (mass/volume) 13.6 g/dL 11.5-16.0 Blood hematocrit (volume fraction) 40 % 35-52 Automated erythrocyte mean corpuscular volume 83 [foz_us] 80-99 Automated erythrocyte mean corpuscular hemoglobin (mass per erythrocyte) 28 pg 25-34 Automated erythrocyte mean corpuscular hemoglobin concentration measurement ( mass/volume) 34 g/dL 32-36 Automated erythrocyte distribution width ratio 15.2 % 10.0-14.5 Automated blood platelet count (count/volume) 290 10*3/uL 130-400 Automated blood platelet mean volume measurement 9.8 [foz_us] 7.4-10.4 PT panel in platelet poor plasma by coagulation assay - 01/17/18 11:26 Prothrombin time (PT) in platelet poor plasma by coagulation assay 13.8 s 12.2-14.7 INR in platelet poor plasma or blood by coagulation assay 1.1 0.8-1.4 Activated partial thromboplastin time (aPTT) in platelet poor plasma bycoagulation assay - 01/17/18 11:26 Activated partial thromboplastin time (aPTT) in platelet poor plasma bycoagulation assay 25 s 24-35 Comprehensive metabolic panel - 01/17/18 11:26 Serum or plasma sodium measurement (moles/volume) 140 mmol/L 135-145 Serum or plasma potassium measurement (moles/volume) 4.5 mmol/L 3.6-5.0 Serum or plasma chloride measurement (moles/volume) 103 mmol/L 98-107 Carbon dioxide 23 mmol/L 21-32 Serum or plasma anion gap determination (moles/volume) 14 mmol/L 5-14 Serum or plasma urea nitrogen measurement (mass/volume) 20 mg/dL 7-18 Serum or plasma creatinine measurement (mass/volume) 1.10 mg/dL 0.60-1.30 Serum or plasma urea nitrogen/creatinine mass ratio 18 NRG Serum or plasma creatinine measurement with calculation of estimated glomerular filtration rate 49 NRG Serum or plasma glucose measurement (mass/volume) 225 mg/dL 70-105 Serum or plasma calcium measurement (mass/volume) 10.6 mg/dL 8.5-10.1 Serum or plasma total bilirubin measurement (mass/volume) 0.6 mg/dL 0.1-1.0 Serum or plasma alkaline phosphatase measurement (enzymatic activity/volume) 123 U/L 40-136 Serum or plasma aspartate aminotransferase measurement (enzymatic activity/ volume) 20 U/L 5-34 Serum or plasma alanine aminotransferase measurement (enzymatic activity/volume ) 23 U/L 0-55 Serum or plasma protein measurement (mass/volume) 8.3 g/dL 6.4-8.2 Serum or plasma albumin measurement (mass/volume) 4.8 g/dL 3.2-4.5 Lipid 1996 panel - 01/17/18 11:26 Serum or plasma triglyceride measurement (mass/volume) 185 mg/dL <150 Serum or plasma cholesterol measurement (mass/volume) 276 mg/dL < 200 Serum or plasma cholesterol in HDL measurement (mass/volume) 57 mg/ dL 40-60 Cholesterol in LDL [mass/volume] in serum or plasma by direct assay 187 mg/dL 1-129 Serum or plasma cholesterol in VLDL measurement (mass/volume) 37 mg/ dL 5-40 Methicillin resistant Staphylococcus aureus (MRSA) screening culture - 11:26 Methicillin resistant Staphylococcus aureus (MRSA) screening culture NEG NRG Activated partial thromboplastin time (aPTT) in platelet poor plasma bycoagulation assay - 01/17/18 15:29 Activated partial thromboplastin time (aPTT) in platelet poor plasma bycoagulation assay > s 24-35 Activated partial thromboplastin time (aPTT) in platelet poor plasma bycoagulation assay - 01/17/18 16:36 Activated partial thromboplastin time (aPTT) in platelet poor plasma bycoagulation assay 122 s 24-35 Encounters ACCT No. Visit Date/Time Discharge Status Pt. 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 [facility] RT NAYANA ON CPAP [id number] 04/25/2018 14:58:00 04/25/2018 23:59:59 CLS Outpatient DEMOND ROBERTSON APRN [facility] RAD NAYANA [id number] 01/17/2018 10:59:00 01/17/2018 22:45:00 DIS Outpatient CRISTOFER GUERRERO MD, FACC, FACP CCDS [facility] CATH CAD,ANGINA, HTN,NAYANA,SOB [id number] 01/03/2018 13:06:00 01/03/2018 23:59:59 CLS Outpatient SHIREEN KENNEDY [facility] CARD CAD [id number] 04/13/2016 07:04:00 04/14/2016 09:55:00 DIS Outpatient CRISTOFER GUERRERO MD, FACC, FACP CCDS [facility] CATH CHEST DISCOMFORT,SOB,HTN [id number] 09/22/2015 13:00:00 09/22/2015 23:59:59 CLS Preadmit CESAR OLMSTEAD FACC, ALI FACP CCDS [facility] CARD CHEST DISCOMFORT,SOB,PALPITATIONS,HT [id number] 06/23/2015 13:05:00 09/21/2015 00:01:00 DIS Outpatient CESAR OLMSTEAD FACC, ALI FACP CCDS [facility] CARD CHEST DISCOMFORT,SOB,PALPITATIONS,HT [id number] 07/23/2015 08:04:00 07/23/2015 23:59:59 CLS Outpatient STEPHANIE CARLSON DO [facility] RT NAYANA ON CPAP,SOB [id number] 07/17/2015 13:52:00 07/17/2015 14:30:00 DIS Outpatient DEMOND ROBERTSON APRN [facility] SLEEP NAYANA,HYPERSOMNIA, SLEEP DISTURBANCE [id number] 07/01/2015 12:18:00 07/01/2015 23:59:59 CLS Outpatient CESAR OLMSTEAD FACC, ALI FACP CCDS [facility] LAB SOB, PALPITATION,HTN,HYPERCHOLESTEROLEMIA [id number] 06/27/2015 11:52:00 06/27/2015 23:59:59 CLS Outpatient CESAR OLMSTEAD FACC, ALI FACP CCDS [facility] CARD CHEST DISCOMFORT,SOB,PALPITATIONS,HTN [id number] 06/19/2015 08:15:00 06/19/2015 23:59:59 CLS Outpatient CESAR OLMSTEAD FACC, ALI FACP CCDS [facility] CARD CHEST DISCOMFORT,SOB,PALPITATIONS,HTN [id number] 05/24/2018 12:00:00 PEN YUKO Louie MD [facility] ENDO LUQ PAIN [id number] 04/20/2010 13:05:00 Document Registration [id number] 04/10/2010 10:10:00 Document Registration [id number] 01/08/2010 11:30:00 Document Registration [id number] 01/05/2010 13:00:00 Document Registration [id number] 01/01/2010 11:45:00 Document Registration [id number] 12/29/2009 11:30:00 Document Registration
[2018-05-24] MEDS ORDERED: NS IV 500 ML 500 ML IV PRN (11:13)
[2018-05-24] MEDS ORDERED: fentaNYL INJECTION 100 MCG/2 ML AMP IVP ONE (11:15)
[2018-05-24] MEDS ORDERED: MIDAZOLAM 2 MG/2 ML (VERSED) VIAL IVP ONE (11:15)
--- NOTE | 2018-05-24 11:23 | Conscious Sedation/ASA ---
Conscious Sedation Pre-Proced Time 11:20 ASA Score 2 For ASA 3 and 4: Consider anesthesia and medical clearance. Also, for patients with a history of failed moderate sedation consider anesthesia. Airway Lungs Heart ASA score ASA 1: a normal healthy patient ASA 2: a patient with a mild systemic disease (mid diabetes, controlled hypertension, obesity ASA 3: a patient with a severe systemic disease that limits activity (angina , COPD, prior Myocardial infarction) ASA 4: a patient with an incapacitating disease that is a constant threat to life (CHF, renal failure) ASA 5: a moribund patient not expected to survive 24 hrs. (ruptured aneurysm) ASA 6: a declared brain- patient whose organs are being harvested. For emergent operations, add the letter E after the classification Mallampati Classification Grade 2 Sedation Plan Analgesia, Amnesia, Plan communicated to team members, Discussed options with patient/fam, Discussed risks with patient/fam The patient is an appropriate candidate to undergo the planned procedure, sedation, and anesthesia. The patient immediately re-assessed prior to indication. YUKO MORTENSEN MD May 24, 2018 11:23
--- NOTE | 2018-05-24 11:24 | Progress Note-Pre Operative ---
Pre-Operative Progress Note H&P Reviewed The H&P was reviewed, patient examined and no changes noted. Date Seen by Provider: May 24, 2018 Time Seen by Provider: 11:20 Date H&P Reviewed: May 24, 2018 Time H&P Reviewed: 11:20 Pre-Operative Diagnosis: abd pain, colitis YUKO MORTENSEN MD May 24, 2018 11:24
--- NOTE | 2018-05-24 11:26 | Discharge Inst-Surgical ---
D/C Lap Instructions-FESTUS Follow Up Activity as tolerated High Fiber Diet 25g or more per day Avoid Alcohol, Caffeine, Spicy [place] and Acid foods. Drink 64 fluid oz or more of fluids per day. Symptoms to Report: Fever over 101 degree F, Nausea/Vomiting If any problems/questions: Contact your physician or go to Emergency Room YUKO MORTENSEN MD May 24, 2018 11:26
[2018-05-24 11:29] VITALS: BP 153/65
[2018-05-24] MEDS ORDERED: ONDANSETRON 4 MG/2 ML (SDV) Z0FRAN IV PRN (11:30)
[2018-05-24] MEDS ORDERED: morphine INJ 10 MG/ML 1ML (SYR OR VIAL) IV PRN (11:30)
[2018-05-24] MEDS ORDERED: HYDROcodone/APAP 5 MG/325 MG (LORTAB) TAB PO PRN (11:30)
[2018-05-24] MEDS ORDERED: ACETAMINOPHEN 325 MG TABLET PO PRN (11:30)
[2018-05-24] MEDS ORDERED: fentaNYL INJECTION 100 MCG/2 ML AMP ONE ×2 (11:55→13:37)
[2018-05-24] MEDS ORDERED: MIDAZOLAM 2 MG/2 ML (VERSED) VIAL ONE ×4 (11:55→11:56)
[2018-05-24] MEDS ORDERED: LIDOCAINE JELLY 2% 6 ML SYRINGE ONE (11:55)
--- NOTE | 2018-05-24 14:11 | Progress Note-Post Operative ---
Post-Operative Progess Note Surgeon (s)/Reinforcing Iron Worker Helper (s) Surgeon YUKO MORTENSEN MD Reinforcing Iron Worker Helper: none Pre-Operative Diagnosis abd pain, colitis Post-Operative Diagnosis chronic stage 2 ext and int hemorrhoids. Procedure & Operative Findings Date of Procedure 05/24/18 Procedure Performed/Findings colonoscopy Anesthesia Type minimal Estimated Blood Loss Estimated blood loss (mL): none Specimens/Packing Specimens Removed none YUKO MORTENSEN MD May 24, 2018 14:11
[2018-05-24] MEDS ORDERED: LIDOCAINE JELLY 2% 6 ML SYRINGE TOP ONE (14:15)
[2018-05-24 14:25] VITALS: BP 140/68
[2018-05-24 14:58] VITALS: BP 123/67
[2018-05-24 15:03] VITALS: BP 123/67
--- NOTE | 2018-05-25 01:29 | OPERATIVE REPORT ---
DATE OF SERVICE: 05/24/2018 ATTENDING PRIMARY CARE PHYSICIAN: Ramona Garcia MD. PREOPERATIVE DIAGNOSIS: Abdominal pain, colitis. POSTOPERATIVE DIAGNOSIS: Chronic stage II external and internal hemorrhoids. Remainder of the colon and rectum appeared normal. There were no mucosal inflammatory changes to indicate any active colitis. PROCEDURE: Colonoscopy. SURGEON: Yuko Mortensen MD. ANESTHESIA: Conscious sedation. ESTIMATED BLOOD LOSS: Minimal. FINDINGS: Chronic stage II external and internal hemorrhoids, not actively edematous nor inflamed and no bleeding. Normal sphincter tone was felt and there were no palpable masses. The remainder of the colon and rectum were normal. There were no mucosal inflammatory changes either acute or chronic to indicate any colitis as well as no obstructing lesions identified. DISPOSITION: The patient tolerated the procedure well. INDICATIONS: The patient is a 67-year-old female in need of a followup colonoscopy. Her last one was in 2018 and she believes this to be normal. She does report a family history of colon cancer with her father having the disease in his 40s. She does not report any red blood per rectum; however, has had intermittent episodes of diarrhea as well as crampy abdominal pain using left upper abdominal quadrant. A CT scan was performed, which did show mid transverse colonic area of thickening, which may have indicated some form of chronic inflammatory process. She does not report any recent inadvertent weight loss. DESCRIPTION OF PROCEDURE: The patient was brought to the endoscopy suite, laid in left lateral decubitus position. After adequate IV pain and sedative medications and conscious sedation anesthesia, a digital rectal examination was performed. Mild chronic stage II external and internal hemorrhoids were identified, which were not actively edematous nor inflamed and no bleeding. Normal sphincter tone was felt and there were no palpable masses. The endoscope was then intubated to the anus and rectum gently insufflated. The endoscope was then advanced to the valves of Poe of the rectum with no polyps or any neoplasms identified. Endoscope was then advanced to the sigmoid colon where there was no diverticulosis. The endoscope was then advanced to the descending and through the transverse colon. There were no mucosal inflammatory changes identified as well as no constricting or obstructing lesions within this region. There were also no strictures identified. Endoscope was then advanced to the remainder of the transverse, ascending colon to the cecum. These segments were normal as well. There were no polyps, neoplasms or any inflammatory changes identified. The endoscope was then slowly withdrawn while taking a second look and suctioning residual air with no additional findings. The patient tolerated the procedure well. We are unsure of the etiology of her crampy abdominal pain as well as diarrhea; however, may be some level of low underlying chronic inflammatory bowel disease. We will have her follow up in the office approximately 3 months to repeat a CT scan if any abnormalities detected. If she does have worsening pain as well as fevers or red blood per rectum, we will proceed with a followup colonoscopy as well. Job ID: [id number] DocumentID: [id number] Dictated Date: 05/24/2018 14:18:22 Academic Physician Date: 05/25/2018 01:11:57 Dictated By: YUKO MORTENSEN MD MTDD
== END 2018-05-24 15:10 | disposition home or self-care (01) ==
LOC: ENDO 10:43
PROVIDERS: ATTEND Surgery
DX: K64.1 Second degree hemorrhoids (principal); R19.7 Diarrhea, unspecified; R10.12 Left upper quadrant pain; Z80.0 Family history of malignant neoplasm of digestive organs; I25.10 Atherosclerotic heart disease of native coronary artery without angina pectoris; E11.9 Type 2 diabetes mellitus without complications; I10 Essential (primary) hypertension; F41.9 Anxiety disorder, unspecified; F32.9 Major depressive disorder, single episode, unspecified; I34.0 Nonrheumatic mitral (valve) insufficiency; Z79.4 Long term (current) use of insulin; Z79.899 Other long term (current) drug therapy; Z79.01 Long term (current) use of anticoagulants; Z80.41 Family history of malignant neoplasm of ovary; Z80.3 Family history of malignant neoplasm of breast

== ENCOUNTER → 2019-08-02 | Outpatient (CLI) | payer MEDICARE, OTHER ==
[~2019-08-02] MED LIST changes: -CETI10TA20 PO; +CETI10TA21 PO
== END ==
LOC: LABNPT 13:40
PROVIDERS: ATTEND Family Medicine
DX: R50.9 Fever, unspecified (principal); R06.00 Dyspnea, unspecified; R21 Rash and other nonspecific skin eruption; Z20.828 Contact with and (suspected) exposure to other viral communicable diseases
CPT/HCPCS: 87635

== ENCOUNTER → 2019-09-12 | Outpatient (CLI) | payer MEDICARE, OTHER ==
[~2019-09-12] MED LIST changes: +BARIUM for suspension 96% w/w (Vanilla Silq Medium Density) PO ONE; +BARIUM for suspension 98% w/w (Vanilla Silq High Density) PO ONE
--- NOTE | 2019-09-12 12:30 | Diagnostic Imaging Report ---
INDICATION: Reflux. Studies performed preoperative prior to gastric sleeve procedure. Patient ingested effervescent crystals as well as thin and thick barium and imaging of the esophagus, stomach and proximal small bowel was performed. Total of 48 seconds of fluoroscopic time was utilized. Preliminary radiograph of the abdomen is unremarkable. Esophagus has a smooth contour. No mass or stricture is identified. No gastroesophageal reflux or hiatal hernia was demonstrated. Stomach is normal in configuration. Proximal small bowel loops are unremarkable. IMPRESSION: Unremarkable upper gastrointestinal. Dictated by: Dictated on workstation # [id number]
== END ==
LOC: RAD 08:56
PROVIDERS: ATTEND Surgery
DX: K21.9 Gastro-esophageal reflux disease without esophagitis (principal)
CPT/HCPCS: 74246

== ENCOUNTER 2019-10-26 12:45 | Outpatient (CLI) | payer MEDICARE, OTHER ==
[~2019-10-26] VITALS: Ht 165.1 cm; Wt 103.0 kg
[~2019-10-26 12:45] MED LIST changes: -BARIUM for suspension 96% w/w (Vanilla Silq Medium Density) PO ONE; -BARIUM for suspension 98% w/w (Vanilla Silq High Density) PO ONE
[2019-10-26] MEDS ORDERED: TIOT4MIS2 IH (13:01)
[2019-10-26] MEDS ORDERED: VENL75TA2 PO (13:01)
[2019-10-26] MEDS ORDERED: ASPI-999 PO (13:01)
[2019-10-26] MEDS ORDERED: VENL150C98 PO (13:01)
[2019-10-26] MEDS ORDERED: METF-399 PO (13:05)
[2019-10-26] MEDS ORDERED: PANT40TA2 PO (13:05)
== END 2019-10-26 13:09 | disposition home or self-care (01) ==
LOC: PREOP 12:45
PROVIDERS: ATTEND Surgery
DX: Z01.818 Encounter for other preprocedural examination (principal)

== ENCOUNTER → 2020-09-02 | Outpatient (CLI) | payer MEDICARE, OTHER ==
[~2020-09-02] MED LIST changes: +ASPI-1238 PO; -ASPI-983 PO; +ASPI-999 PO; -CETI10TA21 PO; +CETI10TA49 PO; +HYDR-3817 PO; +PANT40TA2 PO; +TIOT4MIS2 IH; +VENL150C98 PO
== END ==
LOC: CARD 12:00
PROVIDERS: ATTEND Nurse Practitioner Family
DX: I08.3 Combined rheumatic disorders of mitral, aortic and tricuspid valves (principal)
CPT/HCPCS: 93306

== ENCOUNTER 2021-01-06 08:00 | Day surgery (SDC) | payer MEDICARE, OTHER ==
[~2021-01-06] VITALS: Ht 167.6 cm; Wt 86.6 kg
[2021-01-06 07:33] VITALS: BP 111/54
[2021-01-06 07:39] LABS: HEMATOCRIT 31 % (35-52); HEMOGLOBIN 9.2 g/dL (11.5-16.0); MEAN CORPUSCULAR HEMOGLOBIN 22 pg (25-34); MEAN CORPUSCULAR HGB CONC 30 g/dL (32-36); MEAN CORPUSCULAR VOLUME 75 fL (80-99); MEAN PLATELET VOLUME 10.2 fL (9.0-12.2); PLATELET COUNT 318 10^3/uL (130-400); WHITE BLOOD COUNT 9.6 10^3/uL (4.3-11.0)
[2021-01-06 07:48] LABS: ALBUMIN 4.3 GM/DL (3.2-4.5); POTASSIUM 3.9 MMOL/L (3.6-5.0)
[2021-01-06 07:49] LABS: CALCIUM 9.6 MG/DL (8.5-10.1)
[2021-01-06 07:51] LABS: TOTAL PROTEIN 7.4 GM/DL (6.4-8.2)
[2021-01-06 07:52] LABS: BILIRUBIN,TOTAL 0.7 MG/DL (0.1-1.0)
[2021-01-06 07:54] LABS: INR 1.2 (0.8-1.4); PROTHROMBIN TIME PATIENT 15.3 SEC (12.2-14.7)
[~2021-01-06 08:00] MED LIST changes: +ALBU90AE IH; +FURO40TA4 PO; +HEParin (CATH LAB) 2,000 ML IV ONE; +INSU100I74 SQ; +LIDOCAINE 1% INJ 20 ML 20 ML VIAL ONE; +LISPRO INSULIN SQ; +NS IV 1000 ML 1,000 ML IV SCH; +NS IV 1000 ML 1,000 ML ONE; +POTA10CA43 PO
[2021-01-06] MEDS ORDERED: fentaNYL INJ 100 MCG/2 ML AMP ONE ×2 (08:12→12:14)
[2021-01-06] MEDS ORDERED: MIDAZOLAM 5 MG/5 ML (VERSED) VIAL ONE (08:12)
[2021-01-06] MEDS ORDERED: EPTIFIBATIDE BOLUS 20 ML IV ONE (09:22)
[2021-01-06] MEDS ORDERED: HEParin 1000 UNIT/ML (10ML VIAL) FOR BOLUS ONE (09:22)
[2021-01-06] MEDS ORDERED: NITRO DRIP 25000 MCG/D5W 250 ML IV ONE (09:33)
[2021-01-06] MEDS ORDERED: ASPIRIN 81 MG CHEW (CHILDREN'S ASA) ONE (09:47)
[2021-01-06] MEDS ORDERED: CLOPIDOGREL 300 MG (PLAVIX) TABLET PO ONE (09:47)
[2021-01-06] MEDS ORDERED: PATIENT MAY USE OWN MEDS, ALL PO SCH (10:00)
[2021-01-06 10:30] VITALS: BP 116/59
[2021-01-06] MEDS ORDERED: FUROSEMIDE 40 MG (LASIX) TAB PO ONE (10:30)
[2021-01-06] MEDS ORDERED: KCL 20 MEQ TAB (K-DUR) PO ONE (10:30)
[2021-01-06] MEDS ORDERED: ANTACID SUSP 30 ML UDC (MYLANTA) PO PRN (10:45)
[2021-01-06] MEDS ORDERED: PANTOPRAZOLE 40 MG (PROTONIX) VIAL IV ONE (10:45)
[2021-01-06] MEDS: NS IV 1000 ML 1,000 ML IV SCH ×2 (10:52→20:28)
--- NOTE | 2021-01-06 10:59 | Cardiac Procedure Note-CS/ASA ---
Pre-Procedure Note Pre-Op Procedure Note H&P Reviewed The H&P was reviewed, patient examined and no changes noted. Date H&P Reviewed: Jan 06, 2021 Time H&P Reviewed: 08:30 Conscious Sedation Pre-Proced Time 08:30 ASA Score 3 For ASA 3 and 4: Consider anesthesia and medical clearance. Also, for patients with a history of failed moderate sedation consider anesthesia. Airway Lungs Heart ASA score ASA 1: a normal healthy patient ASA 2: a patient with a mild systemic disease (mid diabetes, controlled hypertension, obesity ASA 3: a patient with a severe systemic disease that limits activity (angina, COPD, prior Myocardial infarction) ASA 4: a patient with an incapacitating disease that is a constant threat to life (CHF, renal failure) ASA 5: a moribund patient not expected to survive 24 hrs. (ruptured aneurysm) ASA 6: a declared brain- patient whose organs are being harvested. For emergent operations, add the letter E after the classification Mallampati Classification Grade 2 Sedation Plan Analgesia, Amnesia, Plan communicated to team members, Discussed options with patient/fam, Discussed risks with patient/fam The patient is an appropriate candidate to undergo the planned procedure, sedation, and anesthesia. The patient immediately re-assessed prior to indication. CRISTOFER GUERRERO MD FACP FAC CCDS Jan 06, 2021 10:59
[2021-01-06] MEDS: [UNRECOGNIZED DRUG - REMARK] SQ SCH ×2 (12:00→17:50)
[2021-01-06] MEDS ORDERED: ATROPINE INJECTION 1 MG/10 ML SYR (ABBOTT) ONE (12:14)
--- NOTE | 2021-01-06 12:35 | Tele-ICU Progress Note ---
Progress Note NO TELE-ICU CONSULT REQUESTED CONTINUE TO MONITOR PER USUAL TELE-ICU PROTOCOL No need for Tele-ICU interventions Plans as delineated by bedside physicians / consultants Consultants: cards Hospital course: 01/06 - (01/06) 70F Admitted to tele then transferred to ICU s/p cardiac cath: stent to circ resp A/P CAD - transferred to ICU s/p cardiac cath 01/06 stent to circ - as per crd -09/02/20- ECHO EF 50% mod -severe , severe MR PULM HTN - RVSP 65 mmHg by ECHO 08/2020 COPD - prm MDI DM II - ISS Anemia - as per PCP Obesity - s/p laparoscopic gastric sleeve resection.10/2019 ( at 227 lb BMPI 38 NAYANA - cont cpap nocturnal with home settings , ok to use patiet's cpap Focused Exam Height, Weight, BMI Height: 5'6.00" Weight: 204lbs. 0.0oz. 92.352587li; 30.82 BMI Method: MARGIE NARANJO MD Jan 06, 2021 12:35
--- NOTE | 2021-01-06 14:22 | CARDIAC CATHETERIZATION ---
DATE OF SERVICE: 01/06/2021 CARDIAC CATHETERIZATION AND CORONARY INTERVENTION REPORT INDICATION FOR PROCEDURE: The patient is a 70-year-old lady, who has increasing shortness of breath for several months. She has also had chest discomfort with exertion. On echocardiography, she has been found to have moderate to severe aortic stenosis and mild mitral stenosis and moderate mitral regurgitation. She was also noted to have considerable pulmonary hypertension on echocardiography. Cardiac catheterization was recommended for further evaluation. Informed consent was obtained. DESCRIPTION OF PROCEDURE: She was brought to the cardiac catheterization laboratory in a fasting state. Right groin was prepared and draped in the usual sterile fashion. Lidocaine 1% was used for local anesthesia. Modified Seldinger technique was used to advance a 5-Wallisian sheath in the right femoral artery and a 7-Wallisian sheath into the right femoral vein. [place] catheter was used to carry out right heart catheterization and to measure oxygen saturation in various right heart chambers. The [place] catheter was then removed. We used a 5-Wallisian pigtail catheter to carry out left heart catheterization. The catheter was advanced across the aortic valve. Measurements were performed. Left ventricular angiography was performed. The pigtail catheter was pulled back to the aortic root. Aortic root angiography was performed. The catheter was then removed. We then proceeded with coronary angiography using a JL4 catheter for left coronary angiography and JR4 catheter for right coronary angiography. Subsequently, percutaneous intervention was carried out to the left circumflex artery and it is described below. PERCUTANEOUS INTERVENTION TO THE LEFT CIRCUMFLEX ARTERY: We exchanged the arterial sheath over a wire for a 6-Wallisian sheath. We used a 6-Wallisian JL4 guide catheter. We advanced a ChoICE floppy wire across the 99% to 100% stenosis in the mid left circumflex artery and the tip was placed in the distal vessel. We carried out balloon angioplasty with a 2.0 x 30 mm balloon. This reduced the stenosis to approximately 70% residual. The balloon was removed. We advanced Starpoint 3.0 x 33 mm stent. This was carefully positioned to cover the entire lesion. The stent was deployed at 12 atmospheres. Subsequently, we postdilated the proximal two-thirds of the standard segment with an [place] 3.5 x 12 mm balloon using multiple balloon inflations. This was done because the proximal part of the standard segment was of somewhat larger caliber than the distal part of the standard segment. Following the stent deployment, there was no significant residual stenosis and flow throughout the vessel has improved from ALEC 1 to ALEC 3. The patient tolerated the procedure well. Following completion of the interventional procedure, we removed the venous sheath and used Mynx for hemostasis. The arterial sheath was left in place and is to be removed manually at the floor. HEMODYNAMICS: Pulmonary artery pressure was 84/36 with a mean of 52 mmHg. Mean pulmonary wedge pressure was 40 mmHg. Right ventricular pressure was 82/21. Mean right atrial pressure was 19 mmHg. Left ventricular pressure was 156/29. Ascending aortic pressure on pullback across the aortic valve was 120/60 with a mean of 86 mmHg. Mean gradient across the aortic valve is approximately 30 mmHg and the valve area is calculated to be approximately 0.6 cm2. Cardiac output by thermodilution was 3.57 and the cardiac index was 1.82. Pulmonary vascular resistance was 3 [place] units. The left ventricular end-diastolic pressure was 29 mmHg. There was no significant oxygen saturation difference between the various chambers of the right heart. LEFT VENTRICULAR ANGIOGRAPHY: Left ventricular angiography was carried out in the right anterior oblique projection. Global left ventricular systolic function appears to be mildly impaired. Ejection fraction is approximately 45% to 50%. There is mild global hypokinesis. Mild to moderate mitral regurgitation is seen. CORONARY ANGIOGRAPHY: Coronary calcification is present. Left main coronary artery is free of significant disease. Left anterior descending artery has approximately 40% to 50% stenosis in its mid portion at the site of the origin of the first diagonal branch. The left circumflex artery had a long 99% to 100% stenosis in its mid portion. This was successfully stented and that reduced the stenosis to 0% residual and improved the distal flow in the left circumflex artery from ALEC 1 to ALEC 3. The right coronary artery is dominant and does not exhibit significant disease. CONCLUSIONS: 1. Severe aortic stenosis with a mean gradient of approximately 30 mmHg and a valve area of approximately 0.6 cm2. 2. Mild impairment of global left ventricular systolic function with an ejection fraction of 45% to 50%. 3. Pulmonary hypertension, moderately severe. 4. Left heart failure as indicated by elevated pulmonary wedge pressure. 5. Coronary artery disease primarily consisting of 99% to 100% mid vessel stenosis of a sizable left circumflex that was successfully stented with Starpoint 3.0 x 33 mm stent. 6. Mild to moderate mitral stenosis and mitral regurgitation. DISCUSSION AND RECOMMENDATIONS: We will continue with diuretic therapy given evidence of congestive heart failure. Her angina appears to at least partially have been coming from a severe stenosis of a large left circumflex and that has been treated. For intervention on the aorta, we will consider referral for consideration of TAVR. Job ID: [id number] DocumentID: [id number] Dictated Date: 01/06/2021 10:18:13 [employer] Water [employer]iller Date: 01/06/2021 14:21:58 Dictated By: CRISTOFER GUERRERO MD, MA, FACP, FACC,
[2021-01-06] MEDS: RT-ALBUTEROL SULF 2.5 MG/3 ML PRE-MIX VIAL IH SCH ×3 (16:07→18:25)
[2021-01-07 05:30] LABS: BASOPHILS % (AUTO) 1 % (0-10); EOSINOPHILS # (AUTO) 0.5 10^3/uL (0.0-0.3); EOSINOPHILS % (AUTO) 9 % (0-10); HEMATOCRIT 27 % (35-52); LYMPHOCYTES % (AUTO) 17 % (12-44); MEAN CORPUSCULAR HEMOGLOBIN 22 pg (25-34); MEAN CORPUSCULAR HGB CONC 30 g/dL (32-36); MEAN CORPUSCULAR VOLUME 74 fL (80-99); MEAN PLATELET VOLUME 10.8 fL (9.0-12.2); MONOCYTES # (AUTO) 0.8 10^3/uL (0.0-1.0); MONOCYTES % (AUTO) 14 % (0-12); NEUTROPHILS # (AUTO) 3.5 10^3/uL (1.8-7.8); NEUTROPHILS % (AUTO) 60 % (42-75); PLATELET COUNT 250 10^3/uL (130-400); WHITE BLOOD COUNT 5.9 10^3/uL (4.3-11.0)
[2021-01-07 06:03] LABS: POTASSIUM 3.9 MMOL/L (3.6-5.0)
[2021-01-07 06:04] LABS: CALCIUM 9.1 MG/DL (8.5-10.1)
[2021-01-07] MEDS: [UNRECOGNIZED DRUG - REMARK] SQ SCH (06:07)
[2021-01-07 06:08] LABS: CREATININE SERUM 0.79 MG/DL (0.60-1.30)
[2021-01-07] MEDS ORDERED: KCL 20 MEQ TAB (K-DUR) PO SCH (07:00)
--- NOTE | 2021-01-07 08:05 | Progress Note - Cardiology ---
Cardiology SOAP Progress Note Objective: I&O/Vital Signs 01/07/21 01/07/21 01/07/21 01/07/21 00:00 01:00 04:00 07:46 Temp 36.3 Pulse 78 78 80 Resp 18 18 B/P (MAP) 127/65 125/57 Pulse Ox 96 94 O2 Delivery NIV CPAP NIV CPAP 01/07/21 09:41 Pulse Ox 98 O2 Delivery Room Air 01/06/21 23:59 Intake Total 225 ml Balance 225 ml Weight (Pounds): 204 Weight (Ounces): 0.0 Weight (Calculated Kilograms): 92.550723 Side: right Groin site without hematoma: Yes Condition: DP/PT pulses palpable, extremity w/d/p Bruising: mild bruising Constitutional: AAO x 3, well-developed, well-nourished Respiratory: No accessory muscle use, No respiratory distress; chest expansion is symmetric, chest is bilaterally symmetric, lungs clear to auscultation Cardiovascular: regular rate-rhythm; No JVD; S1 and S2, systolic murmur Gastrointestional: No tender; soft, round, audible bowel sounds Extremities: no lower extremity edema bilateral Neurologic/Psychiatric: grossly intact (moves all extremities) Skin: No rash on exposed areas, No ulcerations on exposed areas Results/Procedures: Labs Laboratory Tests 01/07/21 04:24: White Blood Count 5.9, Red Blood Count 3.63L, Hemoglobin 8.0L, Hematocrit 27L, Mean Corpuscular Volume 74L, Mean Corpuscular Hemoglobin 22L, Mean Corpuscular Hemoglobin Concent 30L, Red Cell Distribution Width 17.2H, Platelet Count 250, Mean Platelet Volume 10.8, Immature Granulocyte % (Auto) 0, Neutrophils (%) (Auto) 60, Lymphocytes (%) (Auto) 17, Monocytes (%) (Auto) 14H, Eosinophils (%) (Auto) 9, Basophils (%) (Auto) 1, Neutrophils # (Auto) 3.5, Lymphocytes # (Auto) 1.0, Monocytes # (Auto) 0.8, Eosinophils # (Auto) 0.5H, Basophils # (Auto) 0.0, Immature Granulocyte # (Auto) 0.0, Sodium Level 139, Potassium Level 3.9, Chloride Level 105, Carbon Dioxide Level 21, Anion Gap 13, Blood Urea Nitrogen 30H, Creatinine 0.79, Estimat Glomerular Filtration Rate 72, BUN/Creatinine Ratio 38, Glucose Level 116H, Calcium Level 9.1, Magnesium Level 2.0 Microbiology 01/06/21 MRSA Screen - Final, Complete MRSA not isolated Laboratory Tests 01/06/21 07:35 01/07/21 04:24 A/P: Assessment: CAD: - cardiac cath of 01-06-21 showed Severe aortic stenosis with a mean gradient of approximately 30 mmHg and a valve area of approximately 0.6 cm2. Mild impairment of global left ventricular systolic function with an ejection fraction of 45% to 50%. Pulmonary hypertension, moderately severe Left heart failure as indicated b y elevated pulmonary wedge pressure. Coronary artery disease primarily consisting of 99% to 100% mid vessel stenosis of a sizable left circumflex that was successfully stented with Starpoint 3.0 x 33 mm stent. Mild to moderate mitral stenosis and mitral regurgitation. Pulmonary HTN: - moderately severe, indicated by pulmonary wedge pressure elevation seen on cardiac cath of 01-06-21 Severe aortic stenosis - mean gradient of approx 30 mmHg and a valve area of approx 0.6 cm2 on cardiac cath of 01-06-21 Shortness of breath due to ac on ch diastolic CHF due to valvular heart disease: - Echo of 01/03/18 showed mild conc LVH with ejection fraction of approx 60-65%; aortic valve slcerosis with mild aortic stenosis and moderate aortic regurg; mild mitral regurg; grade I diastolic dysfunction of the LV; PASP estimated to be approx 20-25 mmHg - Echo of 09/02/20: LVEF 50-55%, mild dilatation of LA, mild MS, mod MR, mod to severe , mild to mod MR, mild to md TR, PASP 65-70 mmHg Carotid dz - Carotid u/s of Mar 2018 showed mild dz bilat NAYANA - CPAP therapy 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 Palpitations, none currently - 30 day Event Monitor previously has shown SR with no evidence of PVC, PAC, SVT or significant bradycardia Chronic ankle swelling - probably related to venous insuff Hypertension - controlled DM II - managed by PCP Hyperlipidemia - statin tx - followd by PCP Obesity - Elevated BMI of approx 33 Ortho - DJD; s/p L knee replacement Microcytic, hypochromic anemia of undetermined etiology Plan: S/P cardiac cath with successful coronary intervention on 01-06-21 Continue DAPT Continue increased dose of lasix BMP, Mag and CBC in a week Advise out pt f/u in 1 week SHIREEN KENNEDY Jan 07, 2021 08:05
[2021-01-07] MEDS ORDERED: ASPI81TA64 PO (08:08)
[2021-01-07] MEDS ORDERED: PANT40TA52 PO (08:08)
[2021-01-07] MEDS ORDERED: POTA20TA8 PO (08:08)
[2021-01-07] MEDS ORDERED: FURO80TA83 PO (08:08)
[2021-01-07] MEDS ORDERED: ASPIRIN 81 MG CHEW (CHILDREN'S ASA) PO SCH (09:00)
[2021-01-07] MEDS ORDERED: PANTOPRAZOLE 40 MG (PROTONIX) TAB PO SCH (09:00)
[2021-01-07] MEDS ORDERED: [UNRECOGNIZED DRUG - REMARK] PO SCH (09:00)
[2021-01-07] MEDS ORDERED: LOSARTAN 100 MG (COZAAR) TABLET PO SCH (09:00)
[2021-01-07] MEDS ORDERED: FUROSEMIDE 40 MG (LASIX) TAB PO SCH (09:00)
[2021-01-07] MEDS ORDERED: [UNRECOGNIZED DRUG - REMARK] SQ SCH (09:00)
[2021-01-07] MEDS ORDERED: [UNRECOGNIZED DRUG - REMARK] PO SCH (09:00)
[2021-01-07] MEDS ORDERED: CLOPIDOGREL 75 MG (PLAVIX) TABLET PO SCH (09:00)
--- NOTE | 2021-01-07 09:56 | Discharge Inst-Cardiology ---
Discharge Inst-Cardiac Discharge Medications New Medications: Furosemide (Lasix) 80 Mg Tablet 80 MG PO DAILY, #90 TAB 3 Refills Aspirin (Children's Aspirin) 81 Mg Tab.chew 81 MG PO DAILY, #90 TAB 3 Refills Pantoprazole Sodium (Pantoprazole Sodium) 40 Mg Tablet.dr 40 MG PO DAILY, #90 TAB 3 Refills Potassium Chloride (Klor-Con M20) 20 Meq Tab.er.prt 20 MEQ PO DAILY@0700, #90 TAB 3 Refills Continued Medications: Albuterol Sulfate (Proair Respiclick) 90 Mcg Aer.pow.ba 1-2 PUFF IH Q4H, EA Atorvastatin Calcium (Atorvastatin Calcium) 40 Mg Tablet 40 MG PO DAILY, TAB Clopidogrel Bisulfate (Plavix) 75 Mg Tablet 75 MG PO DAILY, TAB Insulin Glargine-Yfgn (Semglee (Yfgn) Pen) 100 Unit/1 Ml Insuln.pen 40 UNIT SQ DAILY, EA [Lispro Insulin Pen] () 10 UNITS SQ AC Losartan Potassium (Losartan Potassium) 100 Mg Tablet 100 MG PO DAILY, TAB Venlafaxine HCl (Venlafaxine HCl ER) 150 Mg Cap.er.24h 150 MG PO DAILY, CAP take with 75mg tab Venlafaxine HCl (Venlafaxine HCl ER) 75 Mg Tab.er.24 75 MG PO DAILY, TAB take with 150mg tab Discontinued Medications: Furosemide (Furosemide) 40 Mg Tablet 40 MG PO DAILY, TAB Potassium Chloride (Potassium Chloride) 10 Meq Capsule.er 10 MEQ PO DAILY, CAP New, Converted or Re-Newed RX: Transmitted to Pharmacy Patient Instructions Patient Instructions: Please schedule follow up appointment to see Dr. Caldwell in a week Lab: BMP, Mag and CBC on Tuesday, Jan 12, 2021 SHIREEN KENNEDY Jan 07, 2021 09:56
[2021-01-07] MEDS: RT-ALBUTEROL SULF 2.5 MG/3 ML PRE-MIX VIAL IH SCH (10:48)
--- NOTE | 2021-01-07 12:10 | Progress Note - Cardiology ---
Cardiology SOAP Progress Note Subjective: No cp or palp or syncope Shortness of breath has improved No n/v/d Some gen weakness, improving Objective: I&O/Vital Signs 01/07/21 01/07/21 01/07/21 01/07/21 01:00 04:00 07:00 07:46 Temp 36.3 Pulse 78 80 75 Resp 18 B/P (MAP) 125/57 Pulse Ox 94 O2 Delivery NIV CPAP 01/07/21 01/07/21 01/07/21 08:00 09:41 10:49 Pulse 78 Resp 18 B/P (MAP) 108/53 Pulse Ox 97 98 97 O2 Delivery NIV CPAP Room Air Room Air 01/07/21 00:00 Intake Total 225 ml Balance 225 ml Weight (Pounds): 204 Weight (Ounces): 0.0 Weight (Calculated Kilograms): 92.923737 Side: right Groin site without hematoma: Yes Condition: DP/PT pulses palpable, extremity w/d/p Bruising: mild bruising Constitutional: AAO x 3, well-developed, well-nourished Respiratory: No accessory muscle use, No respiratory distress; chest expansion is symmetric, chest is bilaterally symmetric, lungs clear to auscultation Cardiovascular: regular rate-rhythm; No JVD; S1 and S2, systolic murmur Gastrointestional: No tender; soft, round, audible bowel sounds Extremities: no lower extremity edema bilateral Neurologic/Psychiatric: grossly intact (moves all extremities) Skin: No rash on exposed areas, No ulcerations on exposed areas Results/Procedures: Labs Laboratory Tests 01/07/21 04:24: White Blood Count 5.9, Red Blood Count 3.63L, Hemoglobin 8.0L, Hematocrit 27L, Mean Corpuscular Volume 74L, Mean Corpuscular Hemoglobin 22L, Mean Corpuscular Hemoglobin Concent 30L, Red Cell Distribution Width 17.2H, Platelet Count 250, Mean Platelet Volume 10.8, Immature Granulocyte % (Auto) 0, Neutrophils (%) (Auto) 60, Lymphocytes (%) (Auto) 17, Monocytes (%) (Auto) 14H, Eosinophils (%) (Auto) 9, Basophils (%) (Auto) 1, Neutrophils # (Auto) 3.5, Lymphocytes # (Auto) 1.0, Monocytes # (Auto) 0.8, Eosinophils # (Auto) 0.5H, Basophils # (Auto) 0.0, Immature Granulocyte # (Auto) 0.0, Sodium Level 139, Potassium Level 3.9, Chloride Level 105, Carbon Dioxide Level 21, Anion Gap 13, Blood Urea Nitrogen 30H, Creatinine 0.79, Estimat Glomerular Filtration Rate 72, BUN/Creatinine Ratio 38, Glucose Level 116H, Calcium Level 9.1, Magnesium Level 2.0 Microbiology 01/06/21 MRSA Screen - Final, Complete MRSA not isolated Laboratory Tests 01/06/21 07:35 01/07/21 04:24 A/P: Assessment: CAD: - cardiac cath of 01-06-21 showed Severe aortic stenosis with a mean gradient of approximately 30 mmHg and a valve area of approximately 0.6 cm2. Mild impairment of global left ventricular systolic function with an ejection fraction of 45% to 50%. Pulmonary hypertension, moderately severe Left heart failure as indicated by elevated pulmonary wedge pressure. Coronary artery disease primarily consisting of 99% to 100% mid vessel stenosis of a sizable left circumflex that was successfully stented with Starpoint 3.0 x 33 mm stent. Mild to moderate mitral stenosis and mitral regurgitation. Pulmonary HTN: - moderately severe, indicated by pulmonary wedge pressure elevation seen on cardiac cath of 01-06-21 Severe aortic stenosis - mean gradient of approx 30 mmHg and a valve area of approx 0.6 cm2 on cardiac cath of 01-06-21 Shortness of breath due to ac on ch diastolic CHF due to valvular heart disease: - Echo of 01/03/18 showed mild conc LVH with ejection fraction of approx 60-65%; aortic valve slcerosis with mild aortic stenosis and moderate aortic regurg; mild mitral regurg; grade I diastolic dysfunction of the LV; PASP estimated to be approx 20-25 mmHg - Echo of 09/02/20: LVEF 50-55%, mild dilatation of LA, mild MS, mod MR, mod to severe , mild to mod MR, mild to md TR, PASP 65-70 mmHg Carotid dz - Carotid u/s of Mar 2018 showed mild dz bilat NAYANA - CPAP therapy 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 Palpitations, none currently - 30 day Event Monitor previously has shown SR with no evidence of PVC, PAC, SVT or significant bradycardia Chronic ankle swelling - probably related to venous insuff Hypertension - controlled DM II - managed by PCP Hyperlipidemia - statin tx - followd by PCP Obesity - Elevated BMI of approx 33 Ortho - DJD; s/p L knee replacement Microcytic, hypochromic anemia of undetermined etiology Plan: S/P cardiac cath with successful coronary intervention on 01-06-21 Continue DAPT Continue increased dose of lasix BMP, Mag and CBC in a week Advise out pt f/u in 1 week I reviewed the findings of cath and interventions undertaken and management of C HF and further CV management plans CRISTOFER GUERRERO MD FACP [facility] Jan 07, 2021 12:10
== END 2021-01-07 11:30 | disposition home or self-care (01) ==
LOC: CATH 08:00 → ICU 10:23 → CATH 01-07 11:30
PROVIDERS: ATTEND Internal Medicine Cardiovascular Disease
DX: I11.0 Hypertensive heart disease with heart failure (principal); I50.33 Acute on chronic diastolic (congestive) heart failure; I25.10 Atherosclerotic heart disease of native coronary artery without angina pectoris; I08.0 Rheumatic disorders of both mitral and aortic valves; I27.20 Pulmonary hypertension, unspecified; I65.23 Occlusion and stenosis of bilateral carotid arteries; G47.33 Obstructive sleep apnea (adult) (pediatric); R00.2 Palpitations; E11.9 Type 2 diabetes mellitus without complications; E78.5 Hyperlipidemia, unspecified; E66.9 Obesity, unspecified; Z68.33 Body mass index [BMI] 33.0-33.9, adult; Z79.02 Long term (current) use of antithrombotics/antiplatelets; Z79.899 Other long term (current) drug therapy; Z79.4 Long term (current) use of insulin
CPT/HCPCS: 80048; 80053; 80061; 83735; 85025; 85027; 85610; 85730; 87081; 93460; 93567; 94640 ×2; C1725 ×2; C1760; C1769 ×2; C1874; C1887; C1894 ×3; C9600; 36415

== ENCOUNTER 2021-05-06 12:27 | Outpatient (RCR) | payer MEDICARE, OTHER ==
[2021-04-29 12:30] VITALS: BP 131/60
[2021-04-29] MEDS: FERRIC CARBOXYMALTOSE INJ 750 MG in NS (IVPB) 250 ML IV SCH (13:18)
[~2021-05-06] VITALS: Ht 167.6 cm; Wt 86.6 kg
[~2021-05-06 12:27] MED LIST changes: +ASPI81TA64 PO; +FURO80TA83 PO; -HEParin (CATH LAB) 2,000 ML IV ONE; -LIDOCAINE 1% INJ 20 ML 20 ML VIAL ONE; -NS IV 1000 ML 1,000 ML IV SCH; -NS IV 1000 ML 1,000 ML ONE; +PANT40TA52 PO; +POTA-169 PO
[2021-05-06] MEDS: FERRIC CARBOXYMALTOSE INJ 750 MG in NS (IVPB) 250 ML IV SCH (12:57)
[2021-05-06 13:22] VITALS: BP 149/68
== END 2021-05-06 13:22 | disposition home or self-care (01) ==
LOC: SDC 12:27
PROVIDERS: ATTEND Nurse Practitioner Family
DX: D50.9 Iron deficiency anemia, unspecified (principal)
CPT/HCPCS: 96365

== ENCOUNTER → 2021-07-21 | Outpatient (CLI) | payer MEDICARE, OTHER ==
--- NOTE | 2021-07-21 15:48 | Diagnostic Imaging Report ---
INDICATION: Elevated parathyroid hormone. TECHNIQUE: Patient was administered 20.5 mCi technetium-99m sestamibi and SPECT as well as planar imaging over the neck and upper chest was performed at 20 minutes and 2 hours. FINDINGS: Planar imaging at 20 minutes does show physiologic uptake of activity within the salivary glands as well as both lobes of the thyroid gland. Planar delayed imaging at 2 hours does show some washout of activity from both lobes of the thyroid gland. No focus of retained activity is seen to suggest parathyroid adenoma. SPECT imaging is unremarkable. IMPRESSION: Normal parathyroid scan. There are no findings to suggest parathyroid adenoma. Dictated by: Dictated on workstation # [id number]
== END ==
LOC: CARD 12:05
PROVIDERS: ATTEND Family Medicine
DX: E21.3 Hyperparathyroidism, unspecified (principal)
CPT/HCPCS: 78072; A9500